=== PATIENT | male | born 1980 | race Caucasian/White ===

== ENCOUNTER 2020-12-26 08:56 | Emergency (ER) | payer SELFPAY ==
[2020-12-26 09:31] VITALS: BP 173/101; PULSE 94; RESP 16; TEMP 36.7; O2SAT 97; BMI 24.2
--- NOTE | 2020-12-26 10:10 | W.ED.MALEGU ---
HPI - Male Genitourinary General: Chief complaint: Urogenital-Male Stated complaint: L FLANK PAIN Time Seen by Provider: 12/26/20 09:00 History of Present Illness: HPI Narrative: 40-year-old male presents emergency room with complaint of right-sided flank pain abdominal pain he has had previous history of kidney stones but 2 months ago he thought he passed a stone. He is not previously been seen by urology is some chronic back problems for which he uses marijuana he states he did smoke some marijuana just before coming in today. MD Complaint: dysuria and other (Left leg pain) Onset (ago): day(s) Duration: constant Location: left flank Radiation: left inguinal region Severity: severe Quality: sharp Relieving factors: none Exacerbating factors: none Context: other (History of renal stones) Associated symptoms: Reports hematuria, nausea and vomiting; Deny discharge, dysuria, fevers/chills, rash, swelling, urinary incontinence, urinary retention or mass Review of Systems Const: Denies: fever(s), chills, body aches, change in appetite, fatigue or malaise ENMT: Denies: throat pain, ear or mastoid pain, nasal discharge or nasal congestion Card: Denies: chest pain, edema, dyspnea on exertion or orthopnea Resp: Denies: dyspnea, productive cough or non-productive cough GI: Reports: nausea and vomiting : Reports: hematuria; Denies: dysuria or urinary incontinence Skin/Breast: Denies: rash or pruritus Physical Exam Const: COMMON NORMALS: no acute distress GENERAL APPEARANCE: cooperative and comfortable ORIENTATION/CONSCIOUSNESS: Yes awake, Yes oriented to person, Yes oriented to place and Yes oriented to time HENMT: COMMON NORMALS: normocephalic, atraumatic, hearing grossly normal bilaterally and external ears normal HEAD & SCALP: normocephalic and atraumatic EXTERNAL EAR: Yes external ears normal Neck/C-Spine: COMMON NORMALS: no JVD Resp: COMMON NORMALS: normal respiratory effort, No retractions, No use of accessory muscles and clear to auscultation bilaterally AUSCULTATION: clear to auscultation bilaterally Cardio: COMMON NORMALS: no JVD, regular rate, regular rhythm and No murmurs present (Cardio) RATE: regular rate RHYTHM: regular rhythm GI: COMMON NORMALS: Soft to palpation and No hepatosplenomegaly present AUSCULTATION: Yes normoactive bowel sounds PALPATION: Yes Soft to palpation, No Tenderness to palpation present (GI), No Guarding due to palpation present (GI) and Yes No hepatosplenomegaly present Extremity: COMMON NORMALS: normal to inspection, capillary refill normal, no clubbing, cyanosis or edema, no calf tenderness and no pedal edema Neuro: SENSORIUM/ORIENTATION: Yes oriented to person, Yes oriented to place and Yes oriented to time Skin: COMMON NORMALS: no rashes or lesions noted GENERAL SKIN EXAM: no rashes or lesions noted Course Vital Signs: Vital signs: Vital Signs Temperature 98.1 F 12/26/20 09:31 Pulse Rate 94 12/26/20 09:31 Respiratory Rate 18 12/26/20 11:53 Blood Pressure 173/101 12/26/20 09:31 Pulse Oximetry 96 12/26/20 11:53 MDM - Male MDM Narrative: Medical decision making narrative: Has large left renal stone there is a question of some inflammation a few white blood cells I discussed with Dr. Morgan. My nurses completely convinced that it is infectious but do believe it is prudent to cover him with antibiotics at this point. Him strain his urine hydrocodone Flomax ciprofloxacin have him follow-up with Dr. Morgan in the next few days. He likely will need some kind of intervention for this large renal pelvis stone. . Patient vies to return for worsening problems. Lab Data: Labs: Lab Results 12/26/20 12/26/20 12/26/20 Range/Units 10:10 10:10 10:20 WBC 9.0 (4.0-10.0) 10^3/ uL RBC 5.05 (4.1-5.3) 10^6/u L Hgb 15.5 (11.7-16.6) g/dL Hct 45.4 (42.0-52.0) % MCV 89.9 (80-94) fL MCH 30.7 (28.0-34.0) pg MCHC 34.1 (30.0-36.0) g/dL RDW 13.6 (12.1-15.1) % Plt Count 312 (130-400) 10^3/c mm MPV 10.1 (7.4-10.4) fL Neut % (Auto) 67.5 % Lymph % (Auto) 21.6 % [facility] % (Auto) 6.1 % Eos % (Auto) 3.9 % Baso % (Auto) 0.6 % Neut # (Auto) 6.11 (1.8-7.7) 10^3/u L Lymph # (Auto) 2.0 (0.8-4.8) 10^3/u L [facility] # (Auto) 0.6 (0.2-0.9) 10^3/u L Eos # (Auto) 0.4 (0.0-0.8) 10^3/u L Baso # (Auto) 0.1 (0.0-0.1) 10^3/u L Nucleated RBC % (a uto) 0 % Nucleated RBCs # 0.0 /100WBC Sodium 139 (136-145) mmol/L Potassium 3.4 L (3.5-5.1) mmol/L Chloride 103 (98-107) mmol/L Carbon Dioxide 26 (22-29) mmol/L Anion Gap 13.4 (5-19) BUN 12 (6-20) mg/dL Creatinine 1.1 (0.7-1.2) mg/dL GFR Calculation 74.5 L (90-130) mL/min Glucose 99 (65-115) mg/dL Calculated Osmolal ity 288 (285-295) mOsm/k g Calcium 8.5 (8.5-10.5) mg/dL Total Bilirubin 0.4 (0.15-1.2) mg/dL AST 17 (0-40) U/L ALT 15 (0-41) U/L Alkaline Phosphata se 91 (40-130) IU/L Total Protein 7.0 (6.6-8.7) g/dL Albumin 4.3 (3.5-5.2) g/dL Globulin 2.7 (1.3-4.6) g/dL Urine Color Yellow (Yellow) Urine Appearance Clear (CLEAR) Urine pH 5 (5-7) Ur Specific Gravit y 1.005 (1.005-1.030) Urine Protein Neg (Negative) Urine Glucose (UA) Norm (Normal) Urine Ketones Negative (Negative) Urine Blood 3+ H (Negative) Urine Nitrate Negative (Negative) Urine Bilirubin Neg (Negative) Urine Urobilinogen Norm (Negative) mg/dL Ur Leukocyte Mónica ase Trace H (Negative) Urine RBC 0-4 H (0-2) /hpf Urine WBC 5-10 H (0-5) /hpf Ur Squamous Epith Cells 0-4 H (0-5) /hpf Amorphous Sediment Not Reportable Urine Bacteria Trace (NONE) /hpf Discharge Plan Discharge Patient Disposition: Home Clinical Impression: Left renal stone, Pyelonephritis Condition: Stable Prescriptions: New hydrocodone-acetaminophen 5-325 mg tablet 1 tab PO Q6H PRN (Reason: pain) Qty: 20 RF: 0 Cipro 500 mg tablet 500 mg PO BID Qty: 20 RF: 0 Flomax 0.4 mg capsule 0.4 mg PO DAILY Qty: 20 RF: 0 Discharge Orders: Discharge ED (Routine); Ordered 12/26/20 Ordered By: Jaylan Springer Referrals: Valentin Berger MD [Primary Care Provider] - Discharge Diet: Usual diet Discharge Activity: Increase activity as tolerated Patient Instructions: Opioid Safety Activity Restrictions/Additional Instructions: strain urine kennel manager dog track will call to make an appointment for you with the urologist. If your symptoms worsen return Coding Level of Care Code ED Door Core Assembler for Chg Fwd Exam Comprehensive
[2020-12-26] MEDS: sodium chloride 0.9% 1,000 ML 999 ML IV (10:16)
[2020-12-26] MEDS: ondansetron 2 mg/ML SDV 2 mL 4 MG IVP (10:18)
[2020-12-26 10:19] VITALS: RESP 16; O2SAT 95
[2020-12-26 10:19] LABS: Basophils # 0.1 10^3/uL (0.0-0.1); Basophils % 0.6 %; Eosinophils # 0.4 10^3/uL (0.0-0.8); Eosinophils % 3.9 %; Hematocrit 45.4 % (42.0-52.0); Hemoglobin 15.5 g/dL (11.7-16.6); Lymphocytes % 21.6 %; Mean Corpuscular HGB Conc 34.1 g/dL (30.0-36.0); Mean Corpuscular Hemoglobin 30.7 pg (28.0-34.0); Mean Corpuscular Volume 89.9 fL (80-94); Mean Platelet Volume 10.1 fL (7.4-10.4); Monocytes # 0.6 10^3/uL (0.2-0.9); Monocytes % 6.1 %; Neutrophils # 6.11 10^3/uL (1.8-7.7); Neutrophils % 67.5 %; Nucleated Red Blood Cells % 0 %; Platelet Count 312 10^3/cmm (130-400); Red Blood Count 5.05 10^6/uL (4.1-5.3); Red Cell Distribution Width 13.6 % (12.1-15.1)
[2020-12-26] MEDS: morphine 4 mg/mL SDV 1 mL IVP ×3 (10:19→11:53)
[2020-12-26 10:32] LABS: Add Urine Microscopic? YES; Bilirubin Urine Neg (Negative); Blood Urine 3+ (Negative); Glucose Urine UA Norm (Normal); Ketones Urine Negative (Negative); Leukocyte Esterase Urine Trace (Negative); Nitrate Urine Negative (Negative); Protein Urine Neg (Negative); Specific Gravity, Urine 1.005 (1.005-1.030); Urine Appearance Clear (CLEAR); Urine Color Yellow (Yellow); Urobilinogen Urine Norm (Negative); pH Urine 5 (5-7)
[2020-12-26 10:35] LABS: Alanine Aminotransferase 15 U/L (0-41); Albumin Level 4.3 g/dL (3.5-5.2); Alkaline Phosphatase 91 IU/L (40-130); Anion Gap 13.4 (5-19); Aspartate Amino Transferase 17 U/L (0-40); Blood Urea Nitrogen 12 mg/dL (6-20); Calcium 8.5 mg/dL (8.5-10.5); Carbon Dioxide 26 mmol/L (22-29); Chloride 103 mmol/L (98-107); Globulin 2.7 g/dL (1.3-4.6); Glomerular Filtration Rate 74.5 mL/min (90-130); Glucose 99 mg/dL (65-115); Osmolality Calculated 288 mOsm/kg (285-295); Potassium 3.4 mmol/L (3.5-5.1); Sodium 139 mmol/L (136-145); Total Bilirubin 0.4 mg/dL (0.15-1.2)
--- NOTE | 2020-12-26 10:35 | CT_ITS ---
WS: [id number] CT ABDOMEN AND PELVIS NONCONTRAST HISTORY: flank pain TECHNIQUE: Imaging performed through the abdomen and pelvis. Coronal and sagittal reformats are submi tted. All CT scans at [facility] use at least one of these dose optimization techniques: automated exposure control; mA and/or kV adjustment per patient size (includes targeted exams where d ose is matched to clinical indication); or iterative reconstruction. DLP: 735.13 mGy.cm COMPARISON: 12/03/2018 Lower thorax: Lung bases are clear. Visualized heart is normal. No hiatal hernia. Liver: Limited evaluation without IV contrast. Coarse echotexture. Variable density throughout the li zac. Gallbladder: Normal gallbladder. Pancreas: Normal size and attenuation. Normal pancreatic duct. No pancreatitis or mass. Spleen: Normal. Adrenal glands: Normal. No mass. Right kidney: Numerous nonobstructing calcifications in the RIGHT kidney. Mild branching of the calci fication in the lower pole measuring 8 mm in diameter. No obstruction. No ureteral calcification. Left kidney: Mild perinephric stranding and fat stranding in the renal pelvis. There is a large calci fication in the renal pelvis measuring 11 mm in diameter with significant amount of inflammation surr ounding this calcification. There is very mild dilatation of the renal pelvis. Additional nonobstruct ing LEFT renal calculi. Aorta: Normal abdominal aorta, no aneurysm or atherosclerosis. No free fluid, intraperitoneal air or significant lymphadenopathy. GI tract: Prior appendectomy. Small hiatal hernia. Diverticulosis without acute diverticulitis. No ob struction. Abdominal wall: Negative. No hernia. Pelvis: No free fluid or adenopathy. Fat-containing LEFT inguinal hernia. Osseous structures: Unremarkable. CT/CT kidney stone [id number] IMPRESSION: 1. Moderate inflammatory changes involving the LEFT renal pelvis with a large central renal calcification measuring 11 mm. Favor intermittent obstruction and possible pyelonephritis. There is very minimal hydronephrosis. 2. Additional bilateral nonobstructing nephrolithiasis. 3. Prior appendectomy.
[2020-12-26 10:45] LABS: Add Urine Culture? No; Bacteria Urine TRACE /hpf; RBC Urine 0-4 /hpf (0-2); Squamous Epithelial Cell Urine 0-4 /hpf (0-5)
[2020-12-26 11:01] VITALS: RESP 14
--- NOTE | 2020-12-26 11:37 | DCPLANNER ---
handicraft or hobby shop manager had message to schedule a follow up appointment for patient with Dr. Morgan. handicraft or hobby shop manager called the office of Dr. Morgan, spoke with Nona, gave clinic patients information. handicraft or hobby shop manager was told that patients information would be printed and reviewed. Clinic will call patient with appointment information.
[2020-12-26 11:53] VITALS: RESP 18; O2SAT 96
--- NOTE | 2020-12-28 08:58 | DCPLANNER ---
Patient has a follow up appointment scheduled for Tuesday, December 29, 2020 at 7:[address] Morgan. Clinic will call patient with appointment information.
--- NOTE | 2021-02-15 07:03 | DCPLANNER ---
Patient had a follow up appointment scheduled for 12.29.[address] Morgan - patient did attend appointment.
== END 2020-12-26 12:00 | disposition home or self-care (01) ==
PROVIDERS: Emergency Provider Family Medicine; PCP Family Medicine
DX: N20.0 Calculus of kidney (principal)
CPT/HCPCS: 74176; 80053; 81001; 85025; 96361; 96374; 96375; 96376; 99283; J2270; J2405; J7030

== ENCOUNTER 2020-12-29 06:58 | Outpatient (CLI) | payer OTHER, SELFPAY ==
--- NOTE | 2020-12-29 07:05 | XR_ITS ---
WS: [id number] KUB, AP view, 12/29/2020 Clinical Data: LEFT URETERAL PELVIC STONE Comparison: KUB, 12/03/2018, CT abdomen and pelvis, 12/26/2020. Findings: No abnormal intraabdominal masses are seen. There is no dilatated small bowel or evidence of obstruct ion. There are bilateral renal calcifications. The largest calcification on the left measures 1.1 cm and i s probably in the left renal pelvis. There are phleboliths on the left side of the true pelvis. XR/XR KUB [id number] Impression: Bilateral renal calcifications.
== END 2020-12-29 06:59 | disposition home or self-care (01) ==
LOC: RAD 07:00
PROVIDERS: PCP Family Medicine; Visit Provider Urology
DX: N20.1 Calculus of ureter (principal); N20.0 Calculus of kidney; Z20.822 Contact with and (suspected) exposure to COVID-19; N12 Tubulo-interstitial nephritis, not specified as acute or chronic
CPT/HCPCS: 74018; 81003; 87635

== ENCOUNTER 2021-01-01 10:43 | Day surgery (SDC) | payer SELFPAY ==
[2020-12-29 17:16] VITALS: BMI 25.8
[2021-01-01] VITALS (11 sets, daily range): BP systolic 125–160; BP diastolic 77–117; PULSE 67–100; RESP 16–18; TEMP 36.6–36.7; O2SAT 92–99
--- NOTE | 2021-01-01 10:43 | XR_ITS ---
WS: [id number] Exam: XR KUB [id number] Date/Time of Exam: 01/01/2021 10:48 AM Reason For Exam: Preop left ESWL No bowel obstruction or free air noted. A 12.8 mm calcification seen along the medial aspect of the l eft kidney may represent a large renal pelvic stone. There are additional multiple calcifications sup erimposing both kidneys suggesting multiple bilateral stones. Visualized organ margins are unremarkab le. Nonspecific pelvic calcifications noted. Regional bony elements are intact. XR/XR KUB [id number] IMPRESSION: 1. Multiple calcifications superimpose both kidneys most likely representing mu ltiple bilateral stones. 2. No acute abdominal finding.
[2021-01-01] MEDS: sodium chloride 0.9% 1,000 ML 30 ML IV (11:16)
[2021-01-01] MEDS: fentaNYL 50 mcg/mL INJ 2mL 100 MCG IVP (12:05)
--- NOTE | 2021-01-01 12:05 | ANES.PREANE2 ---
Pre-Anesthetic Assessment Pre-Anesthetic Assessment: Height/Weight: Height 1.68 m Weight 72.575 kg Temp Pulse Resp BP Pulse Ox 97.9 F 100 18 160/117 99 01/01/21 11:05 01/01/21 11:05 01/01/21 11:05 01/01/21 11:05 01/01/21 11:05 Preop Diagnosis: Large left renal pelvic stone with obstruction Proposed Procedure: Operation Date: 01/01/21 12:00 Proposed Procedures p Cystoscopy 50469 87054 n20.1(Not Applicable) - Barrie Morgan MD s Ureteral Stent Placement(Left) - Barrie Morgan MD s ESWL(Not Applicable) - Barrie Morgan MD Was Beta Warner taken within 24 hours: N/A Was Clonidine taken within 24 hours: N/A Last intake: Intake Last Liquid Date 01/01/21 Last Liquid Time 06:00 Last Solid Date 12/31/20 Last Solid Time 08:30 Social: Social History: Tobacco and No alcohol Exam: Pre-Anes Outpt Exam: alert, oriented x 3 and regular rate & rhythm Airway: Submandibular: WNL Cervical ROM: WNL MP: 2 Dentition: Full Pulmonary: Pulmonary: COPD Anesthetic Plan: ASA status: 2 Anesthesia: General Risk of > 500 ml blood loss (7ml/kg in children): No Meds/Allergies Current Medications: Current Medications Generic Name Dose Route Start Last Admin Trade Name Freq PRN Reason Stop Dose Admin Sodium Chloride 1,000 mls @ 30 ml s/hr 01/01/21 10:45 01/01/21 11:16 Sodium Chloride 0.9% IV 01/02/21 10:44 30 mls/hr .Q24H MEENA Administration PFSH Anesthesia PFSH: Medical History (Updated 12/29/20 @ 08:10 by Barrie Morgan MD) Calculus of kidney and ureter Calculus of proximal left ureter Prostatitis Recurrent UTI Surgical History (Updated 12/29/20 @ 08:10 by Barrie Morgan MD) Hx of appendectomy Hx of lithotripsy Hx of vasectomy Family History (Updated 12/29/20 @ 07:42 by MC Schroeder) Mother , IN EARLY 40'S MELANOMA AND ANOTHER TYPE OF CANCER Cancer Social History (Updated 12/29/20 @ 07:43 by MC Schroeder) Smoking and tobacco status: current every day smoker Alcohol intake: never Marital status: Current occupational status: employed Data Anesthesia Cardiac Studies: No Data to Display
[2021-01-01] MEDS: HYDROmorphone 1 mg/mL INJ 1 mL 0.5 MG IVP (12:36)
--- NOTE | 2021-01-01 12:55 | P.HPUD_ITS ---
Surgery/Procedure H&P Update DATE OF PROCEDURE: January 01, 2021 DATE H&P PERFORMED: 12/29/20 H&P UPDATE INFORMATION: I have reviewed H&P completed within last 30 days, I have examined patient prior to procedure, No changes to prior documentation and H&P is in [facility] on date indicated PREOP DIAGNOSIS: Large left renal pelvic stone with obstruction PLANNED PROCEDURE: Operation Date: 01/01/21 12:00 Proposed Procedures p Cystoscopy 61121 11068 n20.1(Not Applicable) - Barrie Morgan MD s Ureteral Stent Placement(Left) - Barrie Morgan MD s ESWL(Not Applicable) - Barrie Morgan MD
--- NOTE | 2021-01-01 13:00 | P.OP_ITS ---
Operative Report Date of procedure: January 01, 2021 Pre-op Diagnosis: Large left renal pelvic stone with obstruction Post-op diagnosis: same Procedure Done: 1. Cystoscopy, left ureteral stent placement (7 Lithuanian by 26 cm double-pigtail without string) 2. Extracorporeal shockwave lithotripsy left renal pelvic stone Implants: Left ureteral stent Pathology: none sent Surgeon: Eddie Anesthesia: General Estimated blood loss: Minimal Urine output: Not measured Complications: None Findings: Stent in good position. Stone treated with 2500 shocks, excellent change Condition: stable Disposition: PACU Brief History: Umer Patten is a very pleasant 40-year-old white male well-known to me for complex history of recurrent urolithiasis. Recently showed up with left renal colic and was found to have a large stone in the left UPJ with history consistent of intermittent obstruction. The stone was too large to pass and he ultimately chose to proceed with treatment via ESWL and stent. Based on the size of the stone we did review that it may require more than 1 treatment. Procedure: After routine preoperative evaluation examination and obtaining of informed consent he was taken to the operating suite on 01/01/2021 where general anesthesia was administered without difficulty after appropriate timeout was performed, SCDs confirmed to be functioning, preoperative antibiotics administered, beta-yulia protocol confirmed. Prepped and draped in the usual sterile fashion in dorsolithotomy position paying careful attention to avoiding pressure points. 21 Lithuanian cystoscope with 30 degree lens was introduced into urethra meatus and advanced into the bladder under videoscopy. Flexible tip guidewire was easily advanced up the left ureter bypassing the stone and a 7 Lithuanian by 26 cm double-pigtail stent without string was advanced over the guidewire through the cystoscope into appropriate position as confirmed via fluoroscopy and cystoscopy. Bladder was drained and that portion of the procedure was completed. He was then repositioned in supine position. With the shock head positioned posteriorly the stone was brought to the focal point utilizing biplanar fluoroscopy. The stone was easily identified. Shockwave was initiated an intensity of 1 advanced an intensity of 4. Therapy was initiated at a rate of 60-70 and A total of 2500 shocks were administered. Change noted: Excellent. Stone was breaking well by less than 1000 shocks. Tolerated procedure well without complications and was awakened in the operating room and returned to the recovery in stable condition. PLANS: 1. Anticipate discharge from outpatient surgery 2. Follow-up approximately 1 week to 10 days with KUB first possible stent removal
[2021-01-01] MEDS: fentaNYL 50 mcg/mL INJ 2mL IVP (14:23)
--- NOTE | 2021-01-01 14:30 | SUR.PHASEI ---
1423 PT RESTLESS, COMPLAINS OF PAIN TO LOWER ABDOMEN [place] AREA., PT REPOSITIONS SELF TO RT SIDE SEE PAIN MED GIVEN. 1432 PT REQUESTS URINAL AND SOMETHING TO DRINK,
[2021-01-01] MEDS: HYDROcodone-acetaminophen 5-325 mg Tablet 1 TAB PO (14:52)
--- NOTE | 2021-01-01 16:58 | ANE.PACU2 ---
Inpatient post-anesthesia follow up: Airway intact: Yes Vital signs: Temperature 98.1 F Pulse Rate 70 Respiratory Rate 16 Blood Pressure 131/80 Pulse Oximetry 99 Oxygen Delivery Me thod Room Air Oxygen Flow Rate Fraction of Inspir ed Oxygen Hydration adequate: Yes Nausea and vomiting: No Pain level: 2 Mental status: Baseline
== END 2021-01-01 15:30 | disposition home or self-care (01) ==
PROVIDERS: PCP Family Medicine; Visit Provider Urology
PROC: 0TJB8ZZ Inspection of Bladder, Via Natural or Artificial Opening Endoscopic (ICD-10-PCS; CPT 52000; principal; 2021-01-01 12:00)
PROC: (CPT 50605; 2021-01-01 12:00)
PROC: (CPT 50590; 2021-01-01 12:00)
DX: N20.0 Calculus of kidney (principal); F17.210 Nicotine dependence, cigarettes, uncomplicated; J44.9 Chronic obstructive pulmonary disease, unspecified
CPT/HCPCS: 50590; 52332; 74018; 96374; 96375; C2625; J0690; J1100; J1170; J2405; J2704; J2710; J3010; J3490; J7030

== ENCOUNTER 2021-01-12 08:08 | Outpatient (CLI) | payer SELFPAY ==
--- NOTE | 2021-01-12 08:00 | XR_ITS ---
WS: [id number] KUB, AP view, 01/12/2021 Clinical Data: CALCULUS OF PROXIMAL LEFT URETER Comparison: KUB, 01/01/2021. Findings: No abnormal intra abdominal masses are seen. There is no dilatated small bowel or evidence of obstruc tion. There is a left ureteral stent in good position. There are bilateral renal calculi. XR/XR KUB [id number] Impression: 1. Left ureteral stent. 2. Bilateral renal calculi.
== END 2021-01-12 08:09 | disposition home or self-care (01) ==
LOC: RAD 08:09
PROVIDERS: PCP Family Medicine; Visit Provider Urology
DX: N20.1 Calculus of ureter (principal); Z96.0 Presence of urogenital implants; N20.0 Calculus of kidney
CPT/HCPCS: 74018; 81003

== ENCOUNTER 2021-01-16 13:11 | Outpatient (CLI) | payer SELFPAY ==
--- NOTE | 2021-01-16 13:00 | XRR_ITS ---
PROCEDURE INFORMATION: Exam: XR Abdomen Exam date and time: 01/16/2021 1:00 PM Age: 40 years old Clinical indication: Ureteral stone TECHNIQUE: Imaging protocol: XR of the abdomen. Views: Frontal supine view of the abdomen. 1 View. COMPARISON: CR XR KUB [id number] 01/12/2021 8:34 AM FINDINGS: Bilateral renal stones are noted. A left ureteral stent appears appropriately positioned; unchanged from prior. Nonobstructive bowel gas pattern. Probable phleboliths in the left pelvis. No gross free air. XR/XR KUB [id number] IMPRESSION: 1. Bilateral renal stones are noted. 2. A left ureteral stent appears appropriately positioned; unchanged from prior.
== END 2021-01-16 13:12 | disposition home or self-care (01) ==
LOC: RAD 13:13
PROVIDERS: PCP Family Medicine; Visit Provider Urology
DX: N20.1 Calculus of ureter (principal); N20.0 Calculus of kidney; Z96.0 Presence of urogenital implants
CPT/HCPCS: 74018

== ENCOUNTER → 2021-01-29 14:49 | Outpatient (BNVA) | payer SELFPAY | PROVIDERS: PCP Family Medicine; Visit Provider Nurse Practitioner Family | DX: N20.1 Calculus of ureter (principal) | CPT/HCPCS: 82365; 88300 ==

== ENCOUNTER 2022-03-28 09:50 | Outpatient (CLI) | payer MEDICAID, SELFPAY ==
--- NOTE | 2022-03-28 10:01 | XR_ITS ---
WS: [id number] KUB, AP view, 03/28/2022 Clinical Data: stones Comparison: KUB, 03/27/2022 Findings: The bilateral renal calcifications appear to be the same. There is a larger calcification overlying t he inferior pole of the right kidney. Bowel gas and fecal material obscure detail over both kidneys. There are phleboliths on the left side of the true pelvis. XR/XR KUB [id number] Impression: No change in bilateral renal calcifications.
== END 2022-03-28 09:51 | disposition home or self-care (01) ==
LOC: RAD 09:51
PROVIDERS: PCP Family Medicine; Visit Provider Urology
DX: N20.1 Calculus of ureter (principal)
CPT/HCPCS: 74018; 81003

== ENCOUNTER 2022-04-12 09:18 | Outpatient (CLI) | payer MEDICAID, SELFPAY ==
--- NOTE | 2022-04-12 09:24 | XR_ITS ---
WS: [id number] KUB, AP view, 04/12/2022 Clinical Data: Renal Stone Comparison: KUB, 03/28/2022 Findings: There are bilateral calcifications overlying both kidneys but fecal material and bowel gas obscure de tail. There is a larger calcification overlying the inferior pole of the right kidney. There are phleboliths in the left side of the true pelvis. XR/XR KUB [id number] Impression: No change in bilateral renal calcifications.
== END 2022-04-12 09:19 | disposition home or self-care (01) ==
PROVIDERS: PCP Family Medicine; Visit Provider Urology
DX: N20.0 Calculus of kidney (principal); N20.1 Calculus of ureter; N20.9 Urinary calculus, unspecified
CPT/HCPCS: 74018; 81003; 99212

== ENCOUNTER 2022-05-03 09:44 | Outpatient (CLI) | payer MEDICAID, SELFPAY ==
--- NOTE | 2022-05-03 10:01 | XR_ITS ---
WS: [id number] KUB, AP view, 05/03/2022 Clinical Data: STONES Comparison: KUB, 04/12/2022. Findings: There are bilateral calcifications overlying both kidneys unchanged. Again fecal material and colon gas obscure detail. There are phleboliths in left side of the true pelvis. The bladder is partly full. XR/XR KUB [id number] Impression: No change in bilateral renal calcifications.
== END 2022-05-03 09:45 | disposition home or self-care (01) ==
LOC: RAD 09:47
PROVIDERS: PCP Family Medicine; Visit Provider Urology
DX: N20.0 Calculus of kidney (principal)
CPT/HCPCS: 74018; 81003

== ENCOUNTER 2022-07-24 14:03 | Outpatient (CLI) | payer MEDICAID, SELFPAY ==
--- NOTE | 2022-07-24 14:10 | USCV_ITS ---
Umer Patten Age: 42 Gender: M : 1980 Exam Date: 07/24/2022 14:36 Ordering Phys: Valentin Berger MD Technologist: BELLA Exam Location: [facility] [place] Indication: family history of transthoracic AO anuerysm BP: 139 / 97 HR: 65 Rhythm: Sinus Technical Quality: Adequate MEASUREMENTS (Male / Female) Normal Values 2D ECHO LV Diastolic Diameter PLAX 5.0 cm 4.2 - 5.9 / 3.9 - 5.3 cm LV Systolic Diameter PLAX 3.7 cm IVS Diastolic Thickness 0.6 cm 0.6 - 1.0 / 0.6 - 0.9 cm IVS Systolic Thickness 1.1 cm LVPW Diastolic Thickness 0.7 cm 0.6 - 1.0 / 0.6 - 0.9 cm LVPW Systolic Thickness 1.5 cm LVOT Diameter 2.0 cm LV Ejection Fraction 2D Teich 52.7 % LV Ejection Fraction MOD 2C 53.5 % LV Ejection Fraction 2C AL 52.8 % LA Diameter 3.1 cm LA Width 3.0 cm LA Height 3.6 cm RA Width 3.3 cm RA Height 4.2 cm Aorta at Sinotubular Diameter 2.6 cm IVC Diameter 1.6 cm M-MODE Aortic Annulus Diameter 2.9 cm LA Ao Ratio MM 1.0 MV E Point Septal Separation 0.4 cm DOPPLER AV Peak Velocity 103.7 cm/s LVOT Peak Velocity 71.0 cm/s AV Area Cont Eq vti 1.9 cm squared AV Area Cont Eq pk 2.2 cm squared MV Peak Velocity 59.0 cm/s MV Area PHT 4.1 cm squared Mitral E to A Ratio 1.3 MV E' Velocity 40.0 cm/s Mitral E to MV E' Ratio 6.5 Mitral E to LV E' Lateral Ratio 6.2 Mitral E to LV E' Septal Ratio 6.9 TR Peak Velocity 283.8 cm/s TR Peak Gradient 32.2 mmHg TR Mean Velocity 232.8 cm/s TR Mean Gradient 22.7 mmHg TR Velocity Time Integral 72.3 cm Right Atrial Pressure 3.0 mmHg Pulmonary Artery Systolic Pressu 35.2 mmHg PV Peak Velocity 88.0 cm/s RV Acceleration Time 0.1 s RV Ejection Time 0.3 s RV AcT/ET 0.5 FINDINGS Left Ventricle Left ventricle is normal in size. LV function is normal with EF 50-55%. No regional wall motion abnormalities are seen. Right Ventricle Normal in size and function Right Atrium Normal in size Left Atrium Normal in size Mitral Valve Structurally normal mitral valve. Trace mitral regurgitation. Aortic Valve Structurally normal aortic valve. No significant stenosis or regurgitation. Tricuspid Valve Mild tricuspid regurgitation. Insufficient TR jet to calculate RVSP Pulmonic Valve Not well visualized Pericardium Normal Aorta Ascending aorta appears normal in size IVC Appears to be normal CONCLUSIONS LV systolic function is normal with EF of 50 to 55%. Trace mitral regurgitation Mild tricuspid regurgitation No comparison studies are available Eulalio Rousseau MD (Electronically Signed) Final Date: 01 August 2022 11:27 S
== END 2022-07-24 14:04 | disposition home or self-care (01) ==
LOC: RAD 14:04
PROVIDERS: PCP Family Medicine; Visit Provider Family Medicine
DX: Z13.6 Encounter for screening for cardiovascular disorders (principal); Z82.49 Family history of ischemic heart disease and other diseases of the circulatory system; I08.1 Rheumatic disorders of both mitral and tricuspid valves
CPT/HCPCS: 93306

== ENCOUNTER 2022-08-19 07:00 | Day surgery (SDC) | payer MEDICAID, SELFPAY ==
[2022-08-16 10:45] VITALS: BMI 28.1
[2022-08-19 07:02] VITALS: BP 172/85; PULSE 54; RESP 16; TEMP 36.8; O2SAT 99
[2022-08-19] MEDS: sodium chloride 0.9% 1,000 ML 30 ML IV (07:22)
[2022-08-19] MEDS: midazolam 1 mg/mL INJ 2 mL 2 MG IVP (07:43)
--- NOTE | 2022-08-19 07:53 | W.PM.OPSUD ---
Surgery/Procedure H&P Update DATE OF PROCEDURE: August 19, 2022 DATE H&P PERFORMED: 07/23/22 PREOP DIAGNOSIS: subcutaneous mass of back PLANNED PROCEDURE: Operation Date: 08/19/22 08:35 Proposed Procedures p [id number] excision subcutaneous mass on back R22.2(Not Applicable) - Esteban Salazar DO
--- NOTE | 2022-08-19 07:59 | ANES.PREANE2 ---
Pre-Anesthetic Assessment Height/Weight: Height 1.7 m Weight 81.647 kg Temp Pulse Resp BP Pulse Ox O2 Del Method 98.3 F 54 L 16 172/85 99 08/19/22 07:02 08/19/22 07:02 08/19/22 07:02 08/19/22 07:02 08/19/22 07:02 08/19/22 07:17 Preop Diagnosis: subcutaneous mass of back Operation Date: 08/19/22 08:35 Proposed Procedures p 62223 excision subcutaneous mass on back R22.2(Not Applicable) - Estbean Salazar, DO Was Beta Warner taken within 24 hours: N/A Was Clonidine taken within 24 hours: N/A Last intake: Intake Last Liquid Date 08/18/22 Last Liquid Time 23:00 Last Solid Date 08/18/22 Last Solid Time 18:00 Social Tobacco +THC daily pack(s) per day Exam alert, oriented x 3, clear to auscultation bilaterally and regular rate & rhythm Airway Submandibular: within normal limits Cervical ROM: within normal limits Mallampati: Class II Dentition: full History/ROS No significant history except as noted and No significant complaints Pulmonary None reported CV/HEM None reported Hx stones Hepatic None reported GI Gastroesophageal Reflux Disease Metabolic None reported Musc/skel None reported Neuropsych None reported Anesthetic Plan ASA status: 2 Anesthesia: Anesthesia Evaluation and General Risk of > 500 ml blood loss (7ml/kg in children): No Medications/Allergies Home Medications Medication Instructions Recorded Confirmed Last Taken Type docusate sodium 100 mg capsule 100 mg PO BID #20 caps 08/19/22 Unknown Rx (DOK) hydrocodone 7.5 mg-acetaminophen 1 tab PO Q6H PRN pain #20 tabs 08/19/22 Unknown Rx 325 mg tablet Allergies Allergy/AdvReac Type Severity Reaction Status Date / Time No Known Allergies Allergy Verified 07/23/22 09:01 Current Medications Generic Name Dose Route Start Last Admin Trade Name Freq PRN Reason Stop Dose Admin Sodium Chloride 1,000 mls @ 30 mls/hr 08/19/22 07:15 08/19/22 07:22 Sodium Chloride 0.9% IV 08/20/22 07:14 30 mls/hr .Q24H MEENA Administration Midazolam HCl 2 mg 08/19/22 07:02 08/19/22 07:43 Midazolam 1 Mg/Ml Inj 2 Ml IVP 2 mg Q5M PRN Administration Preop Anxiety PFSH Anesthesia Medical History Calculus of kidney and ureter Calculus of proximal left ureter Prostatitis Recurrent UTI Urolithiasis Surgical History Hx of appendectomy Hx of lithotripsy Hx of vasectomy Status post extracorporeal shock wave therapy Family History Mother , IN EARLY 40'S MELANOMA AND ANOTHER TYPE OF CANCER Cancer Social History Smoking and tobacco status: current some day smoker Quit status (tobacco): has tried quititng Alcohol intake: never Lives independently: Yes Household members: spouse Marital status: Current occupational status: employed History of recent travel: No Data Anesthesia Cardiac Studies: Echocardiogram 07/24/22
[2022-08-19] MEDS: ceFAZolin 2,000 MG in sodium chloride 0.9% (plus) 50 ML 100 MG IV (08:25)
--- NOTE | 2022-08-19 09:12 | PM.OP ---
Operative Report Date of procedure: August 19, 2022 Pre-op diagnosis: Preop Diagnosis subcutaneous mass of back Post-op diagnosis: same Procedure done: Excision of subcutaneous mass of back Specimens removed/disposition: Subcutaneous mass of back Surgeon: Dr. Esteban Salazar DO Anesthesia: General Estimated blood loss (mL): 5 Complications: None apparent Brief History: This very pleasant 42-year-old gentleman with a growing subcutaneous mass of his back. Excision is indicated. Risks and benefits were explained and documented. Procedure: The area was inspected prepped and draped in the usual sterile fashion. 2% lidocaine with epinephrine was used to anesthetize the area around the lesion which measured 5 centimeters in greatest diameter. A 15 blade scalpel then used to make an incision 4 centimeters in length over the mass. Incision was carried down to subcutaneous tissue and a fatty mass consistent with a lipoma was identified. The lipoma spread out in every direction with little fingers of tissue. It was not encapsulated. Bovie cautery was used to dissect out the mass and remove it en bloc. The specimen was passed off. 3-0 Vicryl was used to approximate the dermis in an interrupted fashion, and 4-0 Monocryl was use to close the skin in a running subcuticular fashion. Hemostasis was noted. Skin glue was used. Patient tolerated the procedure well.
[2022-08-19 09:21] VITALS: BP 117/75; PULSE 102; RESP 19; TEMP 492.7; TEMP 919; O2SAT 97
[2022-08-19 09:25] VITALS: BP 129/97; PULSE 117; RESP 19; O2SAT 99
[2022-08-19 09:30] VITALS: BP 129/97; PULSE 112; RESP 19; TEMP 36.9; O2SAT 99
[2022-08-19 09:37] VITALS: BP 139/93; PULSE 98; RESP 18; TEMP 36.8; O2SAT 100
--- NOTE | 2022-08-19 09:58 | SUR.PHASEI ---
0919 PT TO PACU 3 PT AWAKE ALERT ON RA GOOD RESP EFFORT NOTED PT TALKATIVE AND LAUGHING, SKIN GLUE TO POST UPPER BACK ABOVE THE SHOULDERS D/I . VSS ID BRACELET TO WRIST, PT ID'D WITH 2 IDENTIFIERS, IV PATENT AT KVO RATE. 0933 PT AWAKE ALERT TALKATIVE WANTS COKE TO SIP ON, PT TO OPS BAY 4 PT HANDOFF AT [facility],
[2022-08-19] MEDS: HYDROcodone-acetaminophen 7.5-325 mg Tablet 1 TAB PO (09:59)
[2022-08-19 10:00] VITALS: BP 138/89; PULSE 89; RESP 16; O2SAT 99
--- NOTE | 2022-08-19 16:13 | ANE.PACU2 ---
Inpatient post-anesthesia follow up: Airway intact: Yes Vital signs: Temperature 98.3 F Pulse Rate 89 Respiratory Rate 16 Blood Pressure 138/89 Pulse Oximetry 99 Oxygen Delivery Me thod Room Air Oxygen Flow Rate Fraction of Inspir ed Oxygen Hydration adequate: Yes Nausea and vomiting: No Pain level: 2 Mental status: Baseline
== END 2022-08-19 10:27 | disposition home or self-care (01) ==
PROVIDERS: PCP Family Medicine; Visit Provider Surgery
PROC: (CPT 11406; principal; 2022-08-19 08:25)
DX: D17.1 Benign lipomatous neoplasm of skin and subcutaneous tissue of trunk (principal); F17.200 Nicotine dependence, unspecified, uncomplicated; K21.9 Gastro-esophageal reflux disease without esophagitis
CPT/HCPCS: 11406; 12032; 88304; J0690; J2250; J2704; J3010; J7030

== ENCOUNTER 2022-11-18 11:51 | Outpatient (CLI) | payer MEDICAID, SELFPAY ==
--- NOTE | 2022-11-18 11:59 | XR_ITS ---
WS: [id number] XR KUB [id number] REASON FOR EXAM: STONES FINDINGS: Multiple varying sized calculi in clusters in the upper, mid, and lower kidney. The largest of these measures 4.5 mm in diameter. There are 6 multiple small, sub-2 mm calculi in the left kidney. No definite ureteral calculi. No change compared to 11/12/2022. XR/XR KUB [id number] IMPRESSION: Multiple bilateral renal calculi.
== END 2022-11-18 11:52 | disposition home or self-care (01) ==
PROVIDERS: PCP Family Medicine; Visit Provider Urology
DX: N20.0 Calculus of kidney (principal)
CPT/HCPCS: 74018

== ENCOUNTER 2022-12-13 09:45 | Emergency (ER) | payer MEDICAID, SELFPAY ==
[2022-12-13 10:14] VITALS: BP 148/100; PULSE 95; RESP 16; TEMP 37.1; O2SAT 98; BMI 28.1
--- NOTE | 2022-12-13 10:49 | CTR_ITS ---
PROCEDURE INFORMATION: Exam: CT Abdomen And Pelvis With Contrast Exam date and time: 12/13/2022 10:55 AM Age: 42 years old Clinical indication: Abdominal pain; Flank; Right; Prior surgery; Surgery date: 6+ months; Surgery type: Appy, gb, lithotripsy; Additional info: Right sided flank pain, HX of kidney stones TECHNIQUE: Imaging protocol: Computed tomography of the abdomen and pelvis with contrast. Radiation optimization: All CT scans at this facility use at least one of these dose optimization techniques: automated exposure control; mA and/or kV adjustment per patient size (includes targeted exams where dose is matched to clinical indication); or iterative reconstruction. Contrast material: OMNI 350; Contrast volume: 100 ml; Contrast route: INTRAVENOUS (IV); REPORTING DATA: Count of CT and Cardiac NM exams in prior 12 months: This patient has received 0 known CTs and 0 known cardiac nuclear medicine studies in the 12 months prior to the current study. COMPARISON: CT kidney stone [id number] 12/26/2020 10:45 AM RADIATION DOSE METRICS: Total DLP (mGy-cm): 937.57 FINDINGS: Lungs: The visualized portions of the lung bases are normal. Liver: Heterogeneously enhancing right hepatic lobe/segment VII mass is seen, measuring approximately 6 x 6.5 cm with central curvilinear low-attenuation region. This has increased in size in correlation with the prior CT dated 12/26/2020. This could represent a region of focal nodular hyperplasia, although malignancy (such as fibrolamellar hepatocellular carcinoma) cannot be excluded. Recommend MRI for further assessment. The remainder of the liver shows normal enhancement. Unchanged segment IV 0.3 x 0.3 cm low-attenuation lesion is noted. Gallbladder and bile ducts: No calcified stones. No biliary ductal dilatation. Pancreas: Unremarkable CT appearance of the pancreatic parenchyma. No ductal dilatation. Spleen: Normal splenic parenchymal attenuation. No splenomegaly. Unchanged inferior splenule is are seen ranging from 1.5-1.7 cm. Adrenal glands: Normal CT appearance of the adrenals. No mass. Kidneys and ureters: No contour deforming renal masses. Bilateral kidney upper pole, mid zone and lower pole multiple 0.1-0.3 cm calculi are seen (greater than 7). Right kidney lower pole 0.5 x 1.2 cm calculus is seen. Some of these were also seen on the prior CT. No hydronephrosis, ureterectasis or ureteral calculi. Stomach and bowel: The non-contrast opacified stomach is not well distended with relative gastric fold prominence. Assessment is limited. Unchanged small hiatal hernia is seen. The noncontrast opacified small bowel loops appear unremarkable. The noncontrast opacified loops of colon show mild constipation. Moderate sigmoid colonic diverticulosis is seen. Moderate proximal to mid sigmoid colonic wall thickening is seen with adjacent fat stranding (series 3 images [id number]). This is consistent with acute diverticulitis. No free air, fluid collection or abscess. As an underlying colonic malignancy cannot be excluded, a follow-up examination after a course of treatment is recommended if clinically warranted. The lack of orally administered contrast material limits assessment. Appendix: Status post prior appendectomy. Intraperitoneal space: No abdominal ascites. No free air. Some benign phleboliths seen in the pelvis. Vasculature: No abdominal aortic aneurysm. Inferior vena cava and portal vein appear unremarkable. Lymph nodes: No enlarged lymph nodes. Urinary bladder: No bladder wall thickening or debris. Reproductive: The prostate demonstrates mild nonspecific enlargement. The seminal vesicles are normal. Recommend correlation with clinical exam findings and PSA level assessment. Bones/joints: No acute osseous abnormality seen. Soft tissues: Unchanged tiny umbilical and small left inguinal hernias are seen, containing peritoneal fat. CT/CT abdomen pelvis w con* [id number] IMPRESSION: 1. Acute sigmoid colonic diverticulitis: Moderate sigmoid colonic diverticulosis. Moderate proximal to mid sigmoid colonic wall thickening with adjacent fat stranding (series 3 images 62-66). No free air, fluid collection or abscess. As an underlying colonic malignancy cannot be excluded, a follow-up examination after a course of treatment is recommended if clinically warranted. 2. Bilateral intrarenal calculi, as noted above. No hydronephrosis, ureterectasis or ureteral calculi. 3. Heterogeneously enhancing right hepatic lobe/segment VII mass, measuring approximately 6 x 6.5 cm with central curvilinear low-attenuation region. This has increased in size in correlation with the prior CT dated 12/26/2020. This could represent a region of focal nodular hyperplasia, although malignancy cannot be excluded. Recommend MRI for further assessment. 4. Other nonacute findings, as noted above.
--- NOTE | 2022-12-13 11:17 | W.ED.ABDPA2 ---
HPI - Abdominal Pain General: Chief Complaint: Abdominal Pain Stated Complaint: possible kidney stone Time Seen by Provider: 12/13/22 10:50 History of Present Illness: Presents to the ER with complaints of right-sided flank pain rating down to his groin. The started last night. Patient has had these before when he had a kidney stones in the past. MD elicited complaint: abdominal pain and flank pain Pertinent past history: kidney stones Onset (ago): day(s) (Started last night) Pain Consistency: intermittent Location: R flank Severity: moderate Quality: sharp Radiation: suprapubic Exacerbating factors: nothing Relieving factors: nothing Context: history of similar episodes Associated Symptoms: Denies chills, diarrhea, fever(s), nausea and vomiting Review of Systems General: Reports: 10 or more systems reviewed and unremarkable except in HPI and below Const: Denies: fever(s), chills or body aches Eyes: Denies: change in vision or photophobia ENMT: Denies: throat pain or odynophagia Card: Denies: chest pain, palpitations, irregular heart rhythm or lightheadedness Resp: Denies: dyspnea, productive cough or non-productive cough GI: Denies: abdominal pain, nausea, vomiting or diarrhea : Reports: flank pain Musc: Reports: back pain; Denies: neck pain Skin/Breast: Denies: rash, pruritus or erythema Neuro: Denies: headache(s) or numbness in extremities PFSH ED PFSH: Medical History Calculus of kidney and ureter Calculus of proximal left ureter Prostatitis Recurrent UTI Urolithiasis Surgical History Hx of appendectomy Hx of lithotripsy Hx of vasectomy S/P excision of lipoma Status post extracorporeal shock wave therapy Family History Mother , IN EARLY 40'S MELANOMA AND ANOTHER TYPE OF CANCER Cancer Social History Smoking and tobacco status: current some day smoker Quit status (tobacco): has tried quititng Alcohol intake: never Lives independently: Yes Household members: spouse Marital status: Current occupational status: employed Physical Exam Const: COMMON NORMALS: no acute distress, average body habitus, patient oriented x3, no limitations, healthy appearing, alert and well nourished HENMT: COMMON NORMALS: normocephalic, atraumatic, hearing grossly normal bilaterally, external ears normal, Normal external nose present and moist oral mucous membranes HEAD & SCALP: normocephalic and atraumatic NOSE: Normal external nose present EXTERNAL EAR: Yes external ears normal Eye: COMMON NORMALS: Equal, round and reactive pupils present, EOMs intact bilaterally, conjunctivae normal and no scleral icterus CONJUNCTIVA: Yes conjunctivae normal PUPIL: Yes Equal, round and reactive pupils present Neck/C-Spine: COMMON NORMALS: full ROM, no lymphadenopathy, supple, no meningeal signs, no JVD and Thyroid normal THYROID: Thyroid normal Chest: COMMONS NORMALS: normal inspection of the chest and normal palpation of entire chest wall Resp: COMMON NORMALS: normal respiratory effort, No retractions, No use of accessory muscles and clear to auscultation bilaterally AUSCULTATION: clear to auscultation bilaterally Cardio: COMMON NORMALS: no JVD GI: COMMON NORMALS: Normal to inspection, nondistended, normoactive bowel sounds present, Soft to palpation, non-tender, No hepatosplenomegaly present and no masses PALPATION: Yes Soft to palpation and Yes No hepatosplenomegaly present : COMMON NORMALS: Yes no CVA tenderness BLADDER/KIDNEY EXAM: Yes no CVA tenderness Back/Pelvis: COMMON NORMALS: no CVA tenderness Neuro: COMMON NORMALS: patient oriented x3 SENSORIUM/ORIENTATION: Yes alert MENINGEAL SIGNS: Yes no meningeal signs Course Vital Signs: Vital signs: Vital Signs Temperature 98.7 F 12/13/22 10:14 Pulse Rate 95 12/13/22 10:14 Respiratory Rate 16 12/13/22 10:14 Blood Pressure 148/100 12/13/22 10:14 Pulse Oximetry 98 12/13/22 10:14 Oxygen Delivery Me thod Room Air 12/13/22 10:14 MDM - Abdominal Pain Medical Decision Making Patient presents to the ER with right-sided flank pain rating down into his groin, patient does have a history of kidney stones, kidney stone work-up was obtained showed a white count of 15.6, and CT scan showed acute sigmoid colonic diverticulitis, moderate sigmoid colonic diverticulosis and increasing liver mass known since 2020. Patient was given the option of inpatient admission with IV antibiotics and pain control or outpatient antibiotics and pain control. Patient chose outpatient. We will discharge patient on pain medicine and antibiotics and patient should follow-up with his family doc for further checkup of his signs and symptoms as well as his liver mass in approximately 1 week. Differential Diagnosis Likely calculus of kidney; Unlikely abdominal pain, acute appendicitis, constipation, diverticulitis, endometriosis, gastroenteritis, pancreatitis or small bowel obstruction Medical Records I reviewed the patient's medical records. Lab Data I reviewed the patient's lab results. 12/13/22 11:25 12/13/22 11:25 Labs/Radiology: Radiology Impressions Abdomen/Pelvis CT 12/13/22 10:49 IMPRESSION: 1. Acute sigmoid colonic diverticulitis: Moderate sigmoid colonic diverticulosis. Moderate proximal to mid sigmoid colonic wall thickening with adjacent fat stranding (series 3 images [id number]). No free air, fluid collection or abscess. As an underlying colonic malignancy cannot be excluded, a follow-up examination after a course of treatment is recommended if clinically warranted. 2. Bilateral intrarenal calculi, as noted above. No hydronephrosis, ureterectasis or ureteral calculi. 3. Heterogeneously enhancing right hepatic lobe/segment VII mass, measuring approximately 6 x 6.5 cm with central curvilinear low-attenuation region. This has increased in size in correlation with the prior CT dated 12/26/2020. This could represent a region of focal nodular hyperplasia, although malignancy cannot be excluded. Recommend MRI for further assessment. 4. Other nonacute findings, as noted above. Laboratory Results WBC 15.6 10^3/uL (4.0-10.0) H 12/13/22 11:25 RBC 4.78 10^6/uL (4.1-5.3) 12/13/22 11:25 Hgb 14.8 g/dL (11.7-16.6) 12/13/22 11:25 Hct 44.0 % (42.0-52.0) 12/13/22 11:25 MCV 92.1 fl (80-94) 12/13/22 11:25 MCH 31.0 pg (28.0-34.0) 12/13/22 11:25 MCHC 33.6 g/dL (30.0-36.0) 12/13/22 11:25 RDW 13.2 % (12.1-15.1) 12/13/22 11:25 Plt Count 276 10^3/cmm (130-400) 12/13/22 11:25 MPV 10.7 fL (7.4-10.4) H 12/13/22 11:25 Neut % (Auto) 76.2 % 12/13/22 11:25 Lymph % (Auto) 13.2 % 12/13/22 11:25 [place] % (Auto) 7.5 % 12/13/22 11:25 Eos % (Auto) 2.3 % 12/13/22 11:25 Baso % (Auto) 0.4 % 12/13/22 11:25 Neut # (Auto) 11.84 10^3/uL (1.8-7.7) H 12/13/22 11:25 Lymph # (Auto) 2.1 10^3/uL (0.8-4.8) 12/13/22 11:25 [place] # (Auto) 1.2 10^3/uL (0.2-0.9) H 12/13/22 11:25 Eos # (Auto) 0.4 10^3/uL (0.0-0.8) 12/13/22 11:25 Baso # (Auto) 0.1 10^3/uL (0.0-0.1) 12/13/22 11:25 Nucleated RBC % (auto) 0 % 12/13/22 11:25 Nucleated RBCs # 0.0 /100WBC 12/13/22 11:25 Sodium 133 mmol/L (136-145) L 12/13/22 11:25 Potassium 3.9 mmol/L (3.5-5.1) 12/13/22 11:25 Chloride 97 mmol/L (98-107) L 12/13/22 11:25 Carbon Dioxide 22 mmol/L (22-29) 12/13/22 11:25 Anion Gap 17.9 (5-19) 12/13/22 11:25 BUN 16 mg/dL (6-20) 12/13/22 11:25 Creatinine 1.1 mg/dL (0.7-1.2) 12/13/22 11:25 GFR Calculation 73.8 mL/min (90-130) L 12/13/22 11:25 Glucose 75 mg/dL (65-115) 12/13/22 11:25 Calculated Osmolality 276 mOsm/kg (285-295) L 12/13/22 11:25 Calcium 8.5 mg/dL (8.5-10.5) 12/13/22 11:25 Total Bilirubin 0.4 mg/dL (0.15-1.2) 12/13/22 11:25 AST 17 U/L (0-40) 12/13/22 11:25 ALT 21 U/L (0-41) 12/13/22 11:25 Alkaline Phosphatase 95 U/L (40-130) 12/13/22 11:25 Total Protein 6.8 g/dL (6.6-8.7) 12/13/22 11:25 Albumin 4.2 g/dL (3.5-5.2) 12/13/22 11:25 Globulin 2.6 g/dL (1.3-4.6) 12/13/22 11:25 Discharge Plan Discharge Patient Disposition: Home Clinical Impression: Diverticulitis, Abnormal CT of liver Condition: Stable Prescriptions: New ciprofloxacin HCl 500 mg tablet 500 mg PO Q12H Qty: 20 0RF metronidazole 500 mg tablet 500 mg PO Q8H 10 Days Qty: 30 0RF hydrocodone-acetaminophen 5-325 mg tablet 1 tab PO TID PRN (Reason: pain) Qty: 10 0RF No Action tamsulosin [Flomax] 0.4 mg capsule 0.4 mg PO DAILY tramadol 50 mg tablet 50 mg PO DAILY hydrocodone-acetaminophen 7.5-325 mg tablet 1 tab PO Q6H PRN (Reason: pain) Qty: 20 0RF DOK 100 mg capsule 100 mg PO BID Qty: 20 0RF Discharge Orders: Discharge ED (Routine); Ordered 12/13/22 Ordered By: Raphael Clark Referrals: Valentin Berger MD [Primary Care Provider] - 1 week Patient Instructions: Diverticulitis, Opioid Safety, Pain Management Activity Restrictions/Additional Instructions: Please take all your antibiotics and finish the prescription. Please take pain medicine as needed as prescribed for pain. Please follow-up with your family practice physician within the next 1 to 2 weeks for reevaluation of your liver. Coding Level of Care Code ED Screen Room Operator for Ignacia Herzog
[2022-12-13 11:31] LABS: Basophils # 0.1 10^3/uL (0.0-0.1); Basophils % 0.4 %; Eosinophils # 0.4 10^3/uL (0.0-0.8); Eosinophils % 2.3 %; Hemoglobin 14.8 g/dL (11.7-16.6); Lymphocytes # 2.1 10^3/uL (0.8-4.8); Lymphocytes % 13.2 %; Mean Corpuscular HGB Conc 33.6 g/dL (30.0-36.0); Mean Corpuscular Volume 92.1 fl (80-94); Mean Platelet Volume 10.7 fL (7.4-10.4); Monocytes # 1.2 10^3/uL (0.2-0.9); Monocytes % 7.5 %; Neutrophils # 11.84 10^3/uL (1.8-7.7); Neutrophils % 76.2 %; Nucleated Red Blood Cells % 0 %; Platelet Count 276 10^3/cmm (130-400); Red Blood Count 4.78 10^6/uL (4.1-5.3); Red Cell Distribution Width 13.2 % (12.1-15.1); White Blood Count 15.6 10^3/uL (4.0-10.0)
[2022-12-13 11:54] LABS: Alanine Aminotransferase 21 U/L (0-41); Albumin Level 4.2 g/dL (3.5-5.2); Alkaline Phosphatase 95 U/L (40-130); Aspartate Amino Transferase 17 U/L (0-40); Blood Urea Nitrogen 16 mg/dL (6-20); Calcium 8.5 mg/dL (8.5-10.5); Carbon Dioxide 22 mmol/L (22-29); Chloride 97 mmol/L (98-107); Creatinine Clr Calc Pharmacy 90.3985; Globulin 2.6 g/dL (1.3-4.6); Glomerular Filtration Rate 73.8 mL/min (90-130); Glucose 75 mg/dL (65-115); Osmolality Calculated 276 mOsm/kg (285-295); Sodium 133 mmol/L (136-145); Total Bilirubin 0.4 mg/dL (0.15-1.2); Total Protein 6.8 g/dL (6.6-8.7)
[2022-12-13] MEDS: ondansetron 2 mg/ML SDV 2 mL 4 MG IVP (11:56)
[2022-12-13] MEDS: ketorolac 30 mg/mL INJ IVP (11:56)
[2022-12-13] MEDS: sodium chloride 0.9% 1,000 ML 999 ML IV (11:56)
[2022-12-13 11:58] LABS: Anion Gap 17.9 (5-19); Potassium 3.9 mmol/L (3.5-5.1)
--- NOTE | 2022-12-13 12:41 | PC.NURSE ---
pt was asked twice it give urine sample and pt denied being able to give sample. iv fluids were started on pt and encouraged pt to use call light when ready to give sample.
[2022-12-13] MEDS: morphine 4 mg/mL SDV 1 mL IVP (12:54)
[2022-12-13] MEDS: metroNIDAZOLE 500 MG Tablet PO (13:14)
[2022-12-13] MEDS: ciprofloxacin 400 MG/200 ML PREMIX 200 MG IV (13:15)
[2022-12-13 13:24] VITALS: BP 158/95; PULSE 85; O2SAT 98
[2022-12-13 14:22] VITALS: BP 154/96; PULSE 91; O2SAT 98
[2022-12-13 14:23] VITALS: BP 154/96; PULSE 91; RESP 18; O2SAT 98
== END 2022-12-13 14:24 | disposition home or self-care (01) ==
PROVIDERS: Emergency Provider Emergency Medicine; PCP Family Medicine
DX: K57.92 Diverticulitis of intestine, part unspecified, without perforation or abscess without bleeding (principal); R93.2 Abnormal findings on diagnostic imaging of liver and biliary tract; Z87.442 Personal history of urinary calculi; F17.210 Nicotine dependence, cigarettes, uncomplicated
CPT/HCPCS: 74177; 80053; 85025; 96365; 96375; 99284; J0744; J1885; J2270; J2405; J7030

== ENCOUNTER 2023-01-09 10:04 | Outpatient (CLI) | payer MEDICAID, SELFPAY ==
--- NOTE | 2023-01-09 10:12 | MR_ITS ---
WS: [id number] MRI ABDOMEN with and without CONTRAST. COMPARISON: Prior CT 12/03/2018, and 12/26/2020, 12/13/2022 Multiplanar, multisequence imaging is performed with and without contrast. Well-circumscribed mildly T2 hyperintense mass centered in the superior RIGHT lobe of the liver. Mass measures 6.1 x 5.7 cm on the T2 sequences. On the T1 sequence the scar centrally is of low signal. I ncreased T2 signal on the more heavily T2 weighted sequences. This mass does enhance moderately and d iffusely. There is enhancement on the delayed imaging through the scar. No calcification is evident. No hemorrhage. There are 2 additional very small lesions within the RIGHT lobe of the liver. 7 mm area of peripheral enhancement in the lateral superior RIGHT lobe of the liver. There is an additional similar nodule w ith mild blush-like enhancement in the inferior RIGHT lobe the liver measuring 14 mm. No calcificatio ns. Additional cysts in the RIGHT lobe is subcentimeter. No portal vein thrombus. No ascites. Bilateral cortical renal cysts. No obstruction. Normal aorta. Normal gallbladder. Normal spleen and p ancreas. Visualized GI tract is normal. MR/MR abdomen wo/w con* [id number] IMPRESSION: 1. Enhancing mass with central scar in the superior RIGHT lobe of the liver. M ass measures 6.1 x 5.7 cm. There is a central scar which does enhance on the de layed imaging. 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 These are typically seen in female patients. This is a male patient. No calcifications or hemorrhag e. 2. There are 2 additional areas of enhancement within the liver. The largest i s 14 mm in the inferior RIGHT lobe the liver. These may be small flash hemangio mas. These could potentially be satellite nodules which are seen with fibrolame llar carcinoma. The differential for FNH would include fibrolamellar carcinoma. 3. Please note this mass has been previously described on multiple noncontrast CTs dating back to 02/26/2006. Mass was difficult to visualize and described due to noncontrast examinations. Additional imaging was recommended for this study on 02/27/2016. This mass has slowly increased in size since 2019 suggesting that it is probably benign also. This can be further evaluated by a hepatic surgeon . 4. Additional imaging to consider is a nuclear medicine technetium sulfur kobe oid scan. This is nearly pathognomonic if there is increased uptake for benign FNH.
[2023-01-09] MEDS: gadobenate dimeglumine 20 mL vial IV (13:03)
== END 2023-01-09 10:05 | disposition home or self-care (01) ==
PROVIDERS: PCP Family Medicine; Visit Provider Family Medicine
DX: R16.0 Hepatomegaly, not elsewhere classified (principal)
CPT/HCPCS: 74183; A9577

== ENCOUNTER 2023-02-06 08:10 | Emergency (ER) | payer MEDICAID, SELFPAY ==
[2023-02-06] VITALS (7 sets, daily range): BP systolic 150–177; BP diastolic 91–113; PULSE 74–94; RESP 16–18; TEMP 36.8; O2SAT 91–99; BMI 26.9
--- NOTE | 2023-02-06 08:14 | XR_ITS ---
WS: [id number] Exam: XR chest 1V portable [id number] Date/Time of Exam: 02/06/2023 8:28 AM Reason For Exam: dyspnea/cough Findings: The lungs are clear and fully expanded. Costophrenic angles are sharp. No infiltrates. Bronchovascula r relief appears normal. Cardiac silhouette is unremarkable. Bony elements are intact. XR/XR chest 1V portable [id number] IMPRESSION: Unremarkable chest radiograph.
--- NOTE | 2023-02-06 08:14 | CT_ITS ---
WS: [id number] CT ABDOMEN AND PELVIS WITH CONTRAST HISTORY: abd pain, lower abdominal pain. Nausea and vomiting. TECHNIQUE: Imaging performed of the abdomen and pelvis with IV contrast. Single phase imaging of the abdomen. Coronal and sagittal reformats are submitted. All CT scans at [facility] use at do st one of these dose optimization techniques: automated exposure control; mA and/or kV adjustment per patient size (includes targeted exams where dose is matched to clinical indication); or iterative re construction. IV CONTRAST: Omnipaque 350; 100 mL IV. Oral contrast: No DLP: 490.53 mGy.cm COMPARISON: 12/13/2022, MRI 01/09/2023, 12/26/2020 and 12/03/2018 Lower thorax: Lung bases are clear. Heart is normal size. Small hiatal hernia. Liver/biliary system: Again noted is the hepatic mass in the superior RIGHT lobe of the liver with a central nonenhancing scar measuring 5.7 x 5.7 cm and extends over a length of 4.7 cm. This mass has b een previously described on CT and MRI. Mildly and slowly increasing in size since 2016. No acute hem orrhage. No bile duct dilatation. Gallbladder: Normal. No gallstones or wall thickening. No pericholecystic fluid. Pancreas: Normal size pancreas and pancreatic duct. No adjacent inflammation. Spleen: Normal size spleen. No mass or infarct. Adrenal glands: Normal. Right kidney: Normal size kidney with too small to characterize hypodensities in the cortex. Numerous nonobstructing calcifications in the renal pelvis. No progression of stone disease since 12/13/2022. No renal or ureteral obstruction. Left kidney: Normal size kidney with too small to characterize hypodensities. There are a few nonobst ructing calcifications. No ureteral obstruction. Aorta: Normal. Lymphadenopathy: None. Free fluid: None. GI tract: Normally distended stomach. No small bowel obstruction. No hyperemia or wall thickening. Th e appendix is been removed. Numerous diverticula in the distal colon. Patient has known acute diverti culitis which has significantly improved since 12/13/2022 with only minimal residual inflammation joyce ining. No free air. No abscess. Abdominal wall: Unremarkable abdominal wall. No hernia. Pelvis: No free fluid or adenopathy within the pelvis. Patent LEFT inguinal canal containing fat. Bones: Unremarkable. CT/CT abdomen pelvis w con* [id number] IMPRESSION: 1. Significant improvement in the recently described acute sigmoid diverticuli tis. No abscess or free fluid or free air. 2. Prior appendectomy. 3. Nonobstructing bilateral renal calcifications. 4. 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 Slowly increased in size over multip le prior exams and years. Follow-up with hepatic surgeon was previously recomme nded.
--- NOTE | 2023-02-06 08:35 | ED_ITS ---
HPI - Abdominal Pain General: Chief Complaint: Abdominal Pain Stated Complaint: abd and into bladder pain Time Seen by Provider: 02/06/23 08:13 Source: patient Mode of arrival: ambulatory History of Present Illness: 42-year-old male male presents emergency room with abdominal pain. Over the last 6 to 8 weeks patient has had a rather complicated course he was seen in the emergency room thought to have diverticulitis and there was a liver mass. He was started on oral antibiotics since then he is followed up with his primary care doctor as an outpatient he has been through 2 courses of Cipro and Flagyl and 2 courses of Augmentin. He had a follow-up MRI for the liver mass that appears to be benign. Despite multiple rounds of antibiotics he continues to have abdominal pain is actually worse. This morning he presented to his primary care doctor complaining of left lower quadrant abdominal pain is been progressively worsening. To further complicate his issues on 716 he was kicked in the abdomen by a cow. He is also noted some dark stools for last few days. He has not had any gianni hematochezia or melena hematemesis or coffee-ground emesis denies any dysuria urgency or frequency or hematuria. No fevers sweats or chills. He has not previously had a colonoscopy. His primary care doctor has been working on getting him set up to see gastroenterology but to this point he has not been able to see them yet. MD elicited complaint: abdominal pain Pertinent past history: none Onset (ago): minute(s) Pain Consistency: constant Location: LLQ Quality: cramping Radiation: none Exacerbating factors: nothing Relieving factors: nothing Associated Symptoms: Reports bloating, GI cramping, melena and nausea; Denies anorexia, belching, change in bowel habits, change in stool character, chills, coffee ground emesis, constipation, diarrhea, dyspepsia, dysuria, excessive flatus, fever(s), heartburn, hematochezia, hematuria, hematemesis, fecal incontinence, loose stools, poor appetite, syncope and vomiting Review of Systems Const: Denies: fever(s) or chills ENMT: Denies: throat pain, ear or mastoid pain, nasal discharge or nasal c ongestion Card: Denies: chest pain or syncope Resp: Denies: dyspnea, productive cough or non-productive cough GI: Reports: abdominal pain, nausea, bloating, GI cramping and melena; Denies: vomiting, hematemesis, coffee ground emesis, heartburn, diarrhea, constipation, belching, excessive flatus, fecal incontinence, change in bowel habits, change in stool character or hematochezia : Denies: dysuria, urinary frequency, urinary urgency or hematuria Musc: Denies: neck pain or back pain Skin/Breast: Denies: rash or pruritus PFSH ED PFSH: Medical History Calculus of kidney and ureter Calculus of proximal left ureter Prostatitis Recurrent UTI Urolithiasis Surgical History Hx of appendectomy Hx of lithotripsy Hx of vasectomy S/P excision of lipoma Status post extracorporeal shock wave therapy Family History Mother , IN EARLY 40'S MELANOMA AND ANOTHER TYPE OF CANCER Cancer Social History Smoking and tobacco status: current some day smoker Quit status (tobacco): has tried quititng Alcohol intake: never Lives independently: Yes Household members: spouse Marital status: Current occupational status: employed Physical Exam Const: GENERAL APPEARANCE: cooperative and comfortable ORIENTATION/CONSCIOUSNESS: Yes awake, Yes oriented to person, Yes oriented to place and Yes oriented to time HENMT: COMMON NORMALS: normocephalic, atraumatic and hearing grossly normal bilaterally HEAD & SCALP: normocephalic and atraumatic Resp: COMMON NORMALS: normal respiratory effort, No retractions, No use of accessory muscles and clear to auscultation bilaterally AUSCULTATION: clear to auscultation bilaterally Cardio: COMMON NORMALS: regular rate, regular rhythm and No murmurs present (Cardio) RATE: regular rate RHYTHM: regular rhythm Extremity: COMMON NORMALS: normal to inspection, capillary refill normal, no clubbing, cyanosis or edema, no calf tenderness and no pedal edema Neuro: SENSORIUM/ORIENTATION: Yes oriented to person, Yes oriented to place and Yes oriented to time Skin: COMMON NORMALS: no rashes or lesions noted GENERAL SKIN EXAM: no rashes or lesions noted Course Vital Signs: Vital signs: Vital Signs Temperature 98.2 F 02/06/23 08:25 Pulse Rate 82 02/06/23 11:06 Respiratory Rate 18 02/06/23 11:06 Blood Pressure 167/93 02/06/23 11:06 Pulse Oximetry 94 02/06/23 11:06 Oxygen Delivery Me thod Room Air 02/06/23 11:06 MDM - Abdominal Pain Medical Decision Making Labs and imaging reviewed discussed with patient. No acute findings on the CT is actually significant improvement with diverticulosis. He is feeling somewhat better will discharge the patient home have him follow-up with Dr. Gallego. Dr. Berger is making arrangements for follow-up for GI. Will increase patient's Protonix gave patient diet for reflux esophagitis as well. Return if he has further problems. Also given dicyclomine to use as needed. Medical Records I reviewed the patient's medical records. Lab Data I reviewed the patient's lab results. 02/06/23 08:31 02/06/23 08:31 Labs/Radiology: Radiology Impressions Abdomen/Pelvis CT 02/06/23 08:14 IMPRESSION: 1. Significant improvement in the recently described acute sigmoid dive rticulitis. No abscess or free fluid or free air. 2. Prior appendectomy. 3. Nonobstructing bilateral renal calcifications. 4. 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 Slowly increased in size over multiple prior exams and years. Follow-up with hepatic surgeon was previously recommended. Chest X-Ray 02/06/23 08:14 IMPRESSION: Unremarkable chest radiograph. Laboratory Results WBC 9.3 10^3/uL (4.0-10.0) 02/06/23 08:31 RBC 5.32 10^6/uL (4.1-5.3) H 02/06/23 08:31 Hgb 16.1 g/dL (11.7-16.6) 02/06/23 08:31 Hct 47.9 % (42.0-52.0) 02/06/23 08:31 MCV 90.0 fl (80-94) 02/06/23 08:31 MCH 30.3 pg (28.0-34.0) 02/06/23 08:31 MCHC 33.6 g/dL (30.0-36.0) 02/06/23 08:31 RDW 13.3 % (12.1-15.1) 02/06/23 08:31 Plt Count 312 10^3/cmm (130-400) 02/06/23 08:31 MPV 10.2 fL (7.4-10.4) 02/06/23 08:31 Neut % (Auto) 57.8 % 02/06/23 08:31 Lymph % (Auto) 30.0 % 02/06/23 08:31 [place] % (Auto) 7.8 % 02/06/23 08:31 Eos % (Auto) 3.5 % 02/06/23 08:31 Baso % (Auto) 0.6 % 02/06/23 08:31 Neut # (Auto) 5.39 10^3/uL (1.8-7.7) 02/06/23 08:31 Lymph # (Auto) 2.8 10^3/uL (0.8-4.8) 02/06/23 08:31 Bradford # (Auto) 0.7 10^3/uL (0.2-0.9) 02/06/23 08:31 Eos # (Auto) 0.3 10^3/uL (0.0-0.8) 02/06/23 08:31 Baso # (Auto) 0.1 10^3/uL (0.0-0.1) 02/06/23 08:31 Nucleated RBC % (auto) 0 % 02/06/23 08:31 Nucleated RBCs # 0.0 /100WBC 02/06/23 08:31 Sodium 140 mmol/L (136-145) 02/06/23 08:31 Potassium 3.8 mmol/L (3.5-5.1) 02/06/23 08:31 Chloride 103 mmol/L (98-107) 02/06/23 08:31 Carbon Dioxide 25 mmol/L (22-29) 02/06/23 08:31 Anion Gap 15.8 (5-19) 02/06/23 08:31 BUN 9 mg/dL (6-20) 02/06/23 08:31 Creatinine 1.1 mg/dL (0.7-1.2) 02/06/23 08:31 GFR Calculation 73.8 mL/min (90-130) L 02/06/23 08:31 Glucose 83 mg/dL (65-115) 02/06/23 08:31 Calculated Osmolality 288 mOsm/kg (285-295) 02/06/23 08:31 Lactic Acid 2.3 mmol/L (0.5-2.2) H 02/06/23 08:31 Lactic Acid (Sepsis) 1.0 mmol/L (0.5-2.2) 02/06/23 11:17 Calcium 9.5 mg/dL (8.5-10.5) 02/06/23 08:31 Total Bilirubin 0.4 mg/dL (0.15-1.2) 02/06/23 08:31 AST 18 U/L (0-40) 02/06/23 08:31 ALT 24 U/L (0-41) 02/06/23 08:31 Alkaline Phosphatase 100 U/L (40-130) 02/06/23 08:31 Total Protein 7.6 g/dL (6.6-8.7) 02/06/23 08:31 Albumin 4.7 g/dL (3.5-5.2) 02/06/23 08:31 Globulin 2.9 g/dL (1.3-4.6) 02/06/23 08:31 Lipase 30 U/L (13-60) 02/06/23 08:31 Urine Color Colorless (Yellow) 02/06/23 08:51 Urine Appearance Clear (CLEAR) 02/06/23 08:51 Urine pH 8 (5-7) H 02/06/23 08:51 Ur Specific [place] 1.010 (1.005-1.030) 02/06/23 08:51 Urine Protein Neg (Negative) 02/06/23 08:51 Urine Glucose (UA) Norm (Normal) 02/06/23 08:51 Urine Ketones Negative (Negative) 02/06/23 08:51 Urine Blood Neg (Negative) 02/06/23 08:51 Urine Nitrate Negative (Negative) 02/06/23 08:51 Urine Bilirubin Neg (Negative) 02/06/23 08:51 Prot Sulfosalicylic Acd Negative (Negative) 02/06/23 08:51 Urine Urobilinogen Norm mg/dL (Negative) 02/06/23 08:51 Ur Leukocyte Esterase Negative (Negative) 02/06/23 08:51 Discharge Plan Discharge Patient Disposition: Home Clinical Impression: Abdominal pain Condition: Stable Prescriptions: New Protonix 40 mg tablet,delayed release (DR/EC) 40 mg PO BID 14 Days Qty: 28 0RF dicyclomine 20 mg tablet 20 mg PO QID PRN (Reason: abd cramping) Qty: 30 0RF promethazine 25 mg tablet 25 mg PO Q6H PRN (Reason: nausea and vomiting) Qty: 20 0RF No Action tamsulosin [Flomax] 0.4 mg capsule 0.4 mg PO DAILY tramadol 50 mg tablet 50 mg PO DAILY hydrocodone-acetaminophen 7.5-325 mg tablet 1 tab PO Q6H PRN (Reason: pain) Qty: 20 0RF DOK 100 mg capsule 100 mg PO BID Qty: 20 0RF ciprofloxacin HCl 500 mg tablet 500 mg PO Q12H Qty: 20 0RF hydrocodone-acetaminophen 5-325 mg tablet 1 tab PO TID PRN (Reason: pain) Qty: 10 0RF Discharge Orders: Discharge ED (Routine); Ordered 02/06/23 Ordered By: Jaylan Springer Referrals: Valentin Berger MD [Primary Care Provider] - Discharge Diet: As Directed Patient Instructions: Diet for Stomach Ulcers and Gastritis (ED), Abdominal Pain (ED), Opioid Safety, Pain Management Coding Level of Care Code ED Oral Surgeon for Ignacia Herzog
[2023-02-06 08:39] LABS: Basophils # 0.1 10^3/uL (0.0-0.1); Basophils % 0.6 %; Eosinophils # 0.3 10^3/uL (0.0-0.8); Eosinophils % 3.5 %; Hematocrit 47.9 % (42.0-52.0); Hemoglobin 16.1 g/dL (11.7-16.6); Lymphocytes # 2.8 10^3/uL (0.8-4.8); Mean Corpuscular HGB Conc 33.6 g/dL (30.0-36.0); Mean Corpuscular Hemoglobin 30.3 pg (28.0-34.0); Mean Platelet Volume 10.2 fL (7.4-10.4); Monocytes # 0.7 10^3/uL (0.2-0.9); Monocytes % 7.8 %; Neutrophils # 5.39 10^3/uL (1.8-7.7); Neutrophils % 57.8 %; Nucleated Red Blood Cells % 0 %; Platelet Count 312 10^3/cmm (130-400); Red Blood Count 5.32 10^6/uL (4.1-5.3); Red Cell Distribution Width 13.3 % (12.1-15.1); White Blood Count 9.3 10^3/uL (4.0-10.0)
--- NOTE | 2023-02-06 08:39 | ECG_ITS ---
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 Measurements Intervals [place] Rate: 86 P: 69 MS: 141 QRS: -5 QRSD: 112 T: 54 QT: 344 QTc: 412 Interpretive Statements SINUS RHYTHM MODERATE INTRAVENTRICULAR CONDUCTION DELAY [110+ ms QRS DURATION] No previous ECG available for comparison Electronically Signed On 02-06-2023 12:24:50 CDT by Maria Alejandra Santiago M.D. [id number]
[2023-02-06] MEDS: ondansetron 2 mg/ML SDV 2 mL 4 MG IVP (08:55)
[2023-02-06] MEDS: sodium chloride 0.9% 1,000 ML 999 ML IV ×2 (08:55→10:03)
[2023-02-06] MEDS: morphine 4 mg/mL SDV 1 mL IVP ×2 (08:55→10:34)
[2023-02-06 09:00] LABS: Lactic Sepsis W/Reflex 2.3 mmol/L (0.5-2.2)
[2023-02-06 09:04] LABS: Alanine Aminotransferase 24 U/L (0-41); Albumin Level 4.7 g/dL (3.5-5.2); Alkaline Phosphatase 100 U/L (40-130); Anion Gap 15.8 (5-19); Aspartate Amino Transferase 18 U/L (0-40); Blood Urea Nitrogen 9 mg/dL (6-20); Calcium 9.5 mg/dL (8.5-10.5); Carbon Dioxide 25 mmol/L (22-29); Chloride 103 mmol/L (98-107); Globulin 2.9 g/dL (1.3-4.6); Glomerular Filtration Rate 73.8 mL/min (90-130); Glucose 83 mg/dL (65-115); Lipase 30 U/L (13-60); Osmolality Calculated 288 mOsm/kg (285-295); Potassium 3.8 mmol/L (3.5-5.1); Sodium 140 mmol/L (136-145); Total Bilirubin 0.4 mg/dL (0.15-1.2); Total Protein 7.6 g/dL (6.6-8.7)
[2023-02-06] MEDS: iohexol 350 mg/mL 500 mL Btl (per mL) IV (09:11)
[2023-02-06 09:22] LABS: Add Urine Microscopic? NO; Charge for UA Resulting for Rev
[2023-02-06 09:40] LABS: Bilirubin Urine Neg (Negative); Blood Urine Neg (Negative); Glucose Urine UA Norm (Normal); Ketones Urine Negative (Negative); Leukocyte Esterase Urine Negative (Negative); Nitrate Urine Negative (Negative); Protein Urine Neg (Negative); Sulfosalicylic Acid Urine Negative (Negative); Urine Appearance Clear (CLEAR); Urine Color Colorless (Yellow); Urobilinogen Urine Norm (Negative); pH Urine 8 (5-7)
[2023-02-06 10:24] LABS: Reflex Lactate Order REFLEX LACTIC ORDERD
--- NOTE | 2023-02-09 01:25 | PC.NURSE ---
Positive blood culture result called on patient. Results given to Dr. odell. No new orders.
[2023-02-09 06:14] LABS: Bacillus cereus group Not Detected (NOT DETECT); Bacillus subtillis group Detected (NOT DETECT); Corynebacterium Not Detected (NOT DETECT); Cutibacterium acnes (P.acnes) Not Detected (NOT DETECT); Enterococcus Not Detected (NOT DETECT); Enterococcus faecalis Not Detected (NOT DETECT); Enterococcus faecium Not Detected (NOT DETECT); Lactobacillus species Not Detected (NOT DETECT); Listeria Not Detected (NOT DETECT); Listeria monocytogenes Not Detected (NOT DETECT); Micrococcus Not Detected (NOT DETECT); Pan Candida Not Detected (NOT DETECT); Pan Gram-Negative Not Detected (NOT DETECT); Staphylococcus epidermidis Not Detected (NOT DETECT); Staphylococcus lugdunensis Not Detected (NOT DETECT); Staphylococcus species Not Detected (NOT DETECT); Streptococcus agalactiae Not Detected (NOT DETECT); Streptococcus anginosus group Not Detected (NOT DETECT); Streptococcus pneumoniae Not Detected (NOT DETECT); Streptococcus pyogenes Not Detected (NOT DETECT); Streptococcus species Not Detected (NOT DETECT); mecA Not Detected (NOT DETECT); mecC Not Detected (NOT DETECT); vanA Not Detected ` (NOT DETECT); vanC Not Detected (NOT DETECT)
== END 2023-02-06 11:39 | disposition home or self-care (01) ==
PROVIDERS: Emergency Provider Family Medicine; PCP Family Medicine
DX: R10.32 Left lower quadrant pain (principal); F17.200 Nicotine dependence, unspecified, uncomplicated
CPT/HCPCS: 36415; 71045; 74177; 80053; 81003; 83605; 83690; 85025; 87040; 87150; 87205; 93005; 96374; 96375; 96376; 99285; J2270; J2405; J7030; Q9967

== ENCOUNTER 2025-02-28 06:11 | Emergency (ER) | payer OTHER, SELFPAY ==
[2025-02-28 06:18] VITALS: BP 143/101; PULSE 80; RESP 18; TEMP 36.7; O2SAT 100; BMI 25.0
[2025-02-28 06:43] LABS: Hematocrit 42.1 % (37-53); Hemoglobin 14.40 g/dL (11.27-16.99); Mean Corpuscular HGB Conc 34.2 g/dL (30-55); Mean Corpuscular Hemoglobin 30.4 pg (27-33); Mean Corpuscular Volume 88.8 fl (82-101); Nucleated Red Blood Cells % 0 %; Platelet Count 393 10^3/cmm (157-399); Red Blood Count 4.74 10^6/uL (3.85-5.65); White Blood Count 14.40 10^3/uL (3.29-11.43)
--- NOTE | 2025-02-28 06:46 | CTR_ITS ---
PROCEDURE INFORMATION: Exam: CT Abdomen And Pelvis With Contrast Exam date and time: 02/28/2025 7:03 AM Age: 44 years old Clinical indication: Nausea and vomiting; Abdominal pain; Localized; Prior surgery; Surgery date: 6+ months; Surgery type: Appy. Vasectomy; C/O lower abd pain with n/v. Diagnosed with diverticulitis last week. TECHNIQUE: Imaging protocol: Computed tomography of the abdomen and pelvis with contrast. Radiation optimization: All CT scans at this facility use at least one of these dose optimization techniques: automated exposure control; mA and/or kV adjustment per patient size (includes targeted exams where dose is matched to clinical indication); or iterative reconstruction. Contrast material: OMNI 350; Contrast volume: 100 ml; Contrast route: INTRAVENOUS (IV); COMPARISON: CT abdomen pelvis w con* [id number] 02/06/2023 9:09 AM RADIATION DOSE METRICS: Total DLP (mGy-cm): 423.73 FINDINGS: Liver: The right hepatic mass currently measures approximately 7.5 cm in diameter, previously 6.4 cm. This probably represents a hepatic adenoma. Small hepatic cysts. Gallbladder and biliary ducts: Normal. No calcified stones. No ductal dilation. Pancreas: Normal. No ductal dilation. Spleen: Normal. No splenomegaly. Adrenal glands: Normal. No mass. Kidneys and ureters: Nonobstructing renal calculi bilaterally, right greater than left. Small bilateral renal cysts. Stomach and bowel: Acute diverticulitis in the distal sigmoid with focal wall thickening and surrounding inflammation. No drainable abscess is observed. Appendix: No evidence of appendicitis. Intraperitoneal space: Unremarkable. No free air. No significant fluid collection. Vasculature: Unremarkable. No abdominal aortic aneurysm. Lymph nodes: Unremarkable. No enlarged lymph nodes. Urinary bladder: Unremarkable as visualized. Reproductive: Unremarkable as visualized. Bones/joints: Unremarkable. No acute fracture. Soft tissues: Unremarkable. CT/CT abdomen pelvis w con* [id number] IMPRESSION: 1. Mild sigmoid diverticulitis. 2. Slightly enlarging likely hepatic adenoma. 3. Stable bilateral nonobstructing renal calculi. COMMENTS: Consistent with the [employer]'s Incidental Findings Committee white paper (J Am Tiffanie Radiol 2018): Any incidental renal lesion less than 1 cm or classified as too small to characterize, or any incidental cystic renal lesion characterized as simple-appearing, is likely benign. No follow-up imaging is recommended for these lesions per consensus recommendations based on imaging criteria.
--- NOTE | 2025-02-28 06:47 | W.ED.ABDPA2 ---
HPI - Abdominal Pain General: Chief Complaint: Abdominal Pain Stated Complaint: n/v/d, abd pain on left side Time Seen by Provider: 02/28/25 06:18 Source: patient Mode of arrival: ambulatory Limitations: no limitations History of Present Illness: 44-year-old male states that he has been having left lower quadrant pain since Friday states that he was seen at the walk-in believe he may had colitis started him on Cipro Flagyl states he is continued left lower quadrant pain some nausea he denies any fevers rates his pain a 5 out of 10 currently. Associated Symptoms: Denies chills, diarrhea, dysuria, fever(s), nausea and vomiting Related Data Home Medications ?Medication ?Instructions ?Recorded ?Confirmed tamsulosin 0.4 mg capsule (Flomax) 0.4 mg PO DAILY 11/18/22 11/18/22 tramadol 50 mg tablet 50 mg PO DAILY 11/18/22 11/18/22 Previous Rx's ?Medication ?Instructions ?Recorded docusate sodium 100 mg capsule 100 mg PO BID #20 caps 08/19/22 (DOK) hydrocodone 7.5 mg-acetaminophen 1 tab PO Q6H PRN pain #20 tabs 08/19/22 325 mg tablet ciprofloxacin HCl 500 mg tablet 500 mg PO Q12H #20 tabs 12/13/22 hydrocodone 5 mg-acetaminophen 325 1 tab PO TID PRN pain #10 tabs 12/13/22 mg tablet dicyclomine 20 mg tablet 20 mg PO QID PRN abd cramping #30 02/06/23 tabs promethazine 25 mg tablet 25 mg PO Q6H PRN nausea and 02/06/23 vomiting #20 tabs hydrocodone 5 mg-acetaminophen 325 1 tab PO Q6H PRN pain #14 tabs 02/28/25 mg tablet ondansetron 4 mg disintegrating 4 mg PO Q6H PRN nausea and 02/28/25 tablet vomiting #14 tabs Allergies Allergy/AdvReac Type Severity Reaction Status Date / Time No Known Allergies Allergy Verified 11/18/22 12:16 Review of Systems Const: Denies: fever(s), chills, body aches or change in appetite ENMT: Denies: throat pain or dental pain Card: Denies: chest pain Resp: Denies: dyspnea GI: Reports: abdominal pain; Denies: nausea, vomiting or diarrhea : Denies: dysuria Musc: Denies: neck pain or back pain Skin/Breast: Denies: rash Neuro: Denies: headache(s) PFSH ED PFSH: Medical History Urolithiasis Recurrent UTI Calculus of kidney and ureter Prostatitis Calculus of proximal left ureter Surgical History S/P excision of lipoma Status post extracorporeal shock wave therapy Hx of appendectomy Hx of vasectomy Hx of lithotripsy Family History Mother , IN EARLY 'S MELANOMA AND ANOTHER TYPE OF CANCER Cancer Social History Smoking and tobacco/nicotine status: current some day tobacco/nicotine user Quit status (tobacco/nicotine): has tried quititng Alcohol intake: never Lives independently: Yes Household members: spouse Marital status: Current occupational status: employed Physical Exam Const: COMMON NORMALS: no acute distress, patient oriented x3 and healthy appearing HENMT: COMMON NORMALS: normocephalic and atraumatic HEAD & SCALP: normocephalic and atraumatic Eye: COMMON NORMALS: conjunctivae normal CONJUNCTIVA: Yes conjunctivae normal Neck/C-Spine: COMMON NORMALS: full ROM and supple Chest: COMMONS NORMALS: normal inspection of the chest Resp: COMMON NORMALS: normal respiratory effort Cardio: COMMON NORMALS: regular rate, regular rhythm and No murmurs present (Cardio) RATE: regular rate RHYTHM: regular rhythm GI: COMMON NORMALS: Normal to inspection, nondistended, normoactive bowel sounds present, Soft to palpation and no masses PALPATION: Yes Soft to palpation and Yes Tenderness to palpation present (GI) Details: LLQ Extremity: COMMON NORMALS: normal to inspection and full ROM Neuro: COMMON NORMALS: patient oriented x3, moves all extremities and no focal motor deficits Psych: COMMON NORMALS: mental status grossly normal, Normal thought process present and cooperative THOUGHT PROCESS: Normal thought process present Skin: COMMON NORMALS: no rashes or lesions noted and no wounds GENERAL SKIN EXAM: no rashes or lesions noted Course Vital Signs: Vital signs: Vital Signs Temperature 98.1 F 02/28/25 06:18 Pulse Rate 70 02/28/25 07:53 Respiratory Rate 16 02/28/25 07:53 Blood Pressure 109/77 02/28/25 07:53 Pulse Oximetry 97 02/28/25 07:53 Oxygen Delivery Me thod Room Air 02/28/25 06:53 MDM - Abdominal Pain Medical Decision Making Patient presents with abdominal pain does have diverticulitis is mild nature. He feels improved he is stable for discharge he is to finish out his course of antibiotics follow-up with his PCP and return if worsening Medical Records I reviewed the patient's medical records. Lab Data I reviewed the patient's lab results. 02/28/25 06:30 02/28/25 06:30 Labs/Radiology: Radiology Impressions Abdomen/Pelvis CT 02/28/25 06:46 IMPRESSION: 1. Mild sigmoid diverticulitis. 2. Slightly enlarging likely hepatic adenoma. 3. Stable bilateral nonobstructing renal calculi. COMMENTS: Consistent with the [employer]'s Incidental Findings Committee white paper (J Am Tiffanie Radiol 2018): Any incidental renal lesion less than 1 cm or classified as too small to characterize, or any incidental cystic renal lesion characterized as simple-appearing, is likely benign. No follow-up imaging is recommended for these lesions per consensus recommendations based on imaging criteria. Laboratory Results WBC 14.40 10^3/uL (3.29-11.43) H 02/28/25 06:30 RBC 4.74 10^6/uL (3.85-5.65) 02/28/25 06:30 Hgb 14.40 g/dL (11.27-16.99) 02/28/25 06:30 Hct 42.1 % (37-53) 02/28/25 06:30 MCV 88.8 fl (82-101) 02/28/25 06:30 MCH 30.4 pg (27-33) 02/28/25 06:30 MCHC 34.2 g/dL (30-55) 02/28/25 06:30 RDW 12.8 % (12.1-15.1) 02/28/25 06:30 Plt Count 393 10^3/cmm (157-399) 02/28/25 06:30 MPV 10.2 fL (7.4-10.4) 02/28/25 06:30 Neut % (Auto) 77.6 % 02/28/25 06:30 Lymph % (Auto) 14.1 % 02/28/25 06:30 Richardson % (Auto) 5.5 % 02/28/25 06:30 Eos % (Auto) 2.0 % 02/28/25 06:30 Baso % (Auto) 0.4 % 02/28/25 06:30 Neut # (Auto) 11.17 10^3/uL (1.8-7.7) H 02/28/25 06:30 Lymph # (Auto) 2.0 10^3/uL (0.8-4.8) 02/28/25 06:30 Richardson # (Auto) 0.8 10^3/uL (0.2-0.9) 02/28/25 06:30 Eos # (Auto) 0.3 10^3/uL (0.0-0.8) 02/28/25 06:30 Baso # (Auto) 0.1 10^3/uL (0.0-0.1) 02/28/25 06:30 Nucleated RBC % (auto) 0 % 02/28/25 06:30 Nucleated RBCs # 0.0 /100WBC 02/28/25 06:30 Sodium 139 mmol/L (136-145) 02/28/25 06:30 Potassium 4.2 mmol/L (3.5-5.1) 02/28/25 06:30 Chloride 104 mmol/L (98-107) 02/28/25 06:30 Carbon Dioxide 26 mmol/L (22-29) 02/28/25 06:30 Anion Gap 13.2 (5-19) 02/28/25 06:30 BUN 8 mg/dL (6-20) 02/28/25 06:30 Creatinine 1.1 mg/dL (0.7-1.2) 02/28/25 06:30 GFR Calculation 73.1 mL/min (90-130) L 02/28/25 06:30 Glucose 140 mg/dL (65-115) H 02/28/25 06:30 Calculated Osmolality 289 mOsm/kg (285-295) 02/28/25 06:30 Calcium 9.0 mg/dL (8.5-10.5) 02/28/25 06:30 Total Bilirubin 0.3 mg/dL (0.15-1.2) 02/28/25 06:30 AST 5 U/L (0-40) 02/28/25 06:30 ALT 22 U/L (0-41) 02/28/25 06:30 Alkaline Phosphatase 127 U/L (40-130) 02/28/25 06:30 C-Reactive Protein 9.0 mg/L (0.0-4.9) H 02/28/25 06:30 Total Protein 7.1 g/dL (6.6-8.7) 02/28/25 06:30 Albumin 3.9 g/dL (3.5-5.2) 02/28/25 06:30 Globulin 3.2 g/dL (1.3-4.6) 02/28/25 06:30 Lipase 29 U/L (13-60) 02/28/25 06:30 Urine Color Yellow (Yellow) 02/28/25 06:57 Urine Appearance Cloudy (CLEAR) A 02/28/25 06:57 Urine pH 5.0 (5-7) 02/28/25 06:57 Ur Specific [place] 1.015 (1.005-1.030) 02/28/25 06:57 Urine Protein Negative (Negative) 02/28/25 06:57 Urine Glucose (UA) Negative (Normal) 02/28/25 06:57 Urine Ketones Trace (Negative) 02/28/25 06:57 Urine Blood Negative (Negative) 02/28/25 06:57 Urine Nitrate Negative (Negative) 02/28/25 06:57 Urine Bilirubin Negative (Negative) 02/28/25 06:57 Urine Urobilinogen 1.0 mg/dL (Negative) 02/28/25 06:57 Ur Leukocyte Esterase 1+ (Negative) A 02/28/25 06:57 Urine RBC 3-5 /hpf (0-2) 02/28/25 06:57 Urine WBC 0-5 /hpf (0-5) 02/28/25 06:57 Ur Squamous Epith Cells 0-5 /hpf (0-5) 02/28/25 06:57 Calcium Oxalate Crystal 80-100 /hpf H 02/28/25 06:57 Amorphous Sediment Not Reportable 02/28/25 06:57 Urine Bacteria None seen /hpf (NONE) 02/28/25 06:57 Hyaline Casts 0.81 /lpf 02/28/25 06:57 Urine Mucus Trace /hpf 02/28/25 06:57 All radiology interpretation(s) finalized by discharge Discharge Plan Discharge Patient Disposition: Home Clinical Impression: Diverticulitis Condition: Stable Prescriptions: New hydrocodone-acetaminophen 5-325 mg tablet 1 tab PO Q6H PRN (Reason: pain) Qty: 14 0RF ondansetron 4 mg tablet,disintegrating 4 mg PO Q6H PRN (Reason: nausea and vomiting) Qty: 14 0RF No Action tamsulosin [Flomax] 0.4 mg capsule 0.4 mg PO DAILY tramadol 50 mg tablet 50 mg PO DAILY dicyclomine 20 mg tablet 20 mg PO QID PRN (Reason: abd cramping) Qty: 30 0RF promethazine 25 mg tablet 25 mg PO Q6H PRN (Reason: nausea and vomiting) Qty: 20 0RF hydrocodone-acetaminophen 7.5-325 mg tablet 1 tab PO Q6H PRN (Reason: pain) Qty: 20 0RF DOK 100 mg capsule 100 mg PO BID Qty: 20 0RF ciprofloxacin HCl 500 mg tablet 500 mg PO Q12H Qty: 20 0RF hydrocodone-acetaminophen 5-325 mg tablet 1 tab PO TID PRN (Reason: pain) Qty: 10 0RF Discharge Orders: Discharge ED (Routine); Ordered 02/28/25 Ordered By: Silvano Hunter Referrals: Valentin Berger MD [Primary Care Provider, Family Practice] - 4-7 days Discharge Diet: Advance as tolerated Discharge Activity: Resume usual activity Patient Instructions: Diverticulitis (ED), Opioid Safety Stand Alone Forms: Work/School Release Print Language: Welsh Coding Level of Care Code ED Account Supervisor for Ignacia Herzog
[2025-02-28 06:53] VITALS: BP 143/101; PULSE 78; RESP 20; O2SAT 100
[2025-02-28 06:58] VITALS: RESP 20; O2SAT 100
[2025-02-28] MEDS: morphine 4 mg/mL SDV 1 mL IVP (06:58)
[2025-02-28] MEDS: ondansetron 2 mg/ML SDV 2 mL 4 MG IVP (06:59)
[2025-02-28 07:03] LABS: Alanine Aminotransferase 22 U/L (0-41); Albumin Level 3.9 g/dL (3.5-5.2); Alkaline Phosphatase 127 U/L (40-130); Anion Gap 13.2 (5-19); Blood Urea Nitrogen 8 mg/dL (6-20); Calcium 9.0 mg/dL (8.5-10.5); Carbon Dioxide 26 mmol/L (22-29); Chloride 104 mmol/L (98-107); Creatinine Clr Calc Pharmacy 84.1279; Globulin 3.2 g/dL (1.3-4.6); Glucose 140 mg/dL (65-115); Lipase 29 U/L (13-60); Osmolality Calculated 289 mOsm/kg (285-295); Potassium 4.2 mmol/L (3.5-5.1); Sodium 139 mmol/L (136-145); Total Protein 7.1 g/dL (6.6-8.7)
[2025-02-28 07:11] LABS: Aspartate Amino Transferase 5 U/L (0-40)
[2025-02-28 07:43] LABS: Glucose Urine UA Negative (Normal); Nitrate Urine Negative (Negative); Specific Gravity, Urine 1.015 (1.005-1.030)
[2025-02-28 07:45] LABS: Add Urine Microscopic? YES
[2025-02-28 07:53] VITALS: BP 109/77; PULSE 70; RESP 16; O2SAT 97
[2025-02-28 08:00] LABS: UA Slide Review UA Slide Review Perf
[2025-02-28 08:33] VITALS: BP 109/77; PULSE 72; O2SAT 97
--- OUTSIDE RECORDS SUMMARY | 2025-03-02 08:05 | XMS_ITS | Patient Health Record ---
Author Organization [facility] Address [address] [place] [address] Care Team Providers Care Reprographics Technician Name Role Phone Valentin Berger MD Primary Care Provider Sharon Nolen Unavailable [phone] [facility] Unavailab le Unavailable Allergies No Known Allergies Reason For Referral No Information Medications Medication SIG (Take, Route, Frequency, Duration) Notes Start Date End Date Status Omeprazole 20 MG Capsule Delayed Release 1 capsule 30 minutes before morning meal Orally Once a day Active Ondansetron HCl 4 MG Tablet 1 tablet Ora lly Once a day Active Social History Tobacco Use: Social History Observation Description Date Details (start date - stop date) Current Smoker NA - NA Social History Tobacco Use: Social Info Question Answer Notes xTobacco Use/Smoking Are you a current smoker Problems Problem Type SNOMED Code ICD Code Onset Dates Problem Status W/U Status Risk Notes Problem Diverticulitis (288915187) Diverticulitis (K57.92) Active confirmed Problem Bilateral nephrolithiasis (N20.0) Active confirmed Plan Of Treatment No Information Insurance Providers Payer Name Payer Address Payer Phone Subscriber Number Group Number Insured Name Patient Relationship to Insured Coverage Start Date Coverage End Date [place] Medicaid [address] [place] [address] [id number] Umer Patten Self - patient is the insured Medical (General) History Medical History History ICD Code Back Trouble Surgical History Surgery Date(Month/Year) appendectomy cystoscopy, stone manipulation, ureteral stent placement
--- OUTSIDE RECORDS SUMMARY | 2025-03-02 08:05 | XMS_ITS | Patient Health Record ---
Author Organization [facility] Address [address] [place] [address] Care Team Providers Care Project Development Leader Name Role Phone Valentin Berger MD Primary Care Provider Crista bauer REINALDO MURPHY Unavailable [phone] Allergies No Known Allergies Reason For Referral No Information Medications Medication SIG (Take, Route, Fr equency, Duration) Notes Start Date End Date Status Omeprazole 20 MG 1 capsule 30 minutes before morning meal Orally Once a day A ctive Ondansetron HCl 4 MG 1 tablet Orally Once a day Active Problems Problem Type SNOMED Code ICD Code Onset Dates Problem Status W/U Status Risk Notes Problem Diverticulitis (840807059) Diverticulitis (K57.92) Active confirmed Problem Bilateral nephrolithiasis (N20.0) Active confirmed Plan Of Treatment Future Test Test Name Order Date Abdomen [id number] 04/28/2023 Insurance Providers Payer Name Payer Address Payer Phone Subscriber Number Group Number Insured Name Patient Relationship to Insured Coverage Start Date Coverage End Date [place] Medicaid [address] [place], [place] [id number] Umer Patten Self - patient is the insured Medical (General) History Medical History History ICD Code Back Trouble Surgical History Surgery Date(Month/Year) appendectomy cystoscopy, stone manipulation, ureteral stent placement
== END 2025-02-28 08:35 | disposition home or self-care (01) ==
PROVIDERS: Emergency Medicine; Emergency Provider Emergency Medicine; PCP Family Medicine
DX: K57.92 Diverticulitis of intestine, part unspecified, without perforation or abscess without bleeding (principal); Z72.0 Tobacco use
CPT/HCPCS: 36415; 74177; 80053; 81001; 83690; 85025; 86140; 96374; 96375; 99285; J2270; J2405